=== PATIENT | male | born 1935 | race Caucasian/White ===

== ENCOUNTER 2016-10-07 19:41 | Inpatient (IN) | payer OTHER ==
[~2016-10-07] VITALS: Ht 172.7 cm; Wt 54.6 kg
[2016-10-07] MEDS ORDERED: CEFEPIME 2GM/50 ML (PMX) 50 ML IVPB STA (20:43)
[2016-10-07] MEDS ORDERED: SODIUM CHLORIDE 0.9% 1L BAG IV* STA (20:43)
[2016-10-07 21:00] VITALS: TEMP 98.5
[2016-10-07] MEDS ORDERED: VANCOMYCIN 1 GM (PMX) 250 ML IVPB ONE (21:00)
[2016-10-07] MEDS ORDERED: UBID10CA5 PO (21:14)
[2016-10-07] MEDS ORDERED: SIMV40TA2 PO (21:15)
[2016-10-07] MEDS ORDERED: NEO/5DRO22 BOTH EYES (21:17)
[2016-10-07] MEDS ORDERED: SIN25100 PO (21:18)
[2016-10-07] MEDS ORDERED: TAMS-14 PO (21:19)
[2016-10-07] MEDS ORDERED: FINA5TAB4 PO (21:19)
[2016-10-07] MEDS ORDERED: ASPI-664 PO (21:20)
[2016-10-07] MEDS ORDERED: FURO-110 PO (21:20)
[2016-10-07] MEDS ORDERED: SPIR25TA PO (21:21)
[2016-10-07 21:23] LABS: INR 1.27; PARTIAL THROMBOPLASTIN TIME 34.5 Sec (25.0-35.0); PT RATIO 1.3
[2016-10-07 21:26] LABS: POTASSIUM 4.3 mmol/L (3.5-5.1)
[2016-10-07 21:28] LABS: ALBUMIN/GLOBULIN RATIO 1.25; CREATININE 1.1 mg/dl (0.61-1.24); HEMATOCRIT 36.7 % (42.0-52.0); HEMOGLOBIN 12.4 g/dl (14.0-18.0); MEAN CORPUSCULAR HGB CONC 33.7 g/dl (32.0-37.0); MEAN CORPUSCULAR VOLUME 92.1 fl (82.0-101.0); MEAN PLATELET VOLUME 8.4 fl (7.4-10.4); PLATELET COUNT 128 10^3/UL (140-440); RED BLOOD COUNT 3.99 10^6/ul (4.70-6.10); RED CELL DISTRIBUTION WIDTH 14.9 % (11.5-14.5); TOTAL PROTEIN 7.2 g/dl (6.1-8.1); UNCORRECTED WBC 16.3 10^3/ul (4.8-10.8); WHITE BLOOD COUNT 16.3 10^3/ul (4.8-10.8)
[2016-10-07 21:29] LABS: CALCIUM 9.7 mg/dl (8.4-10.2)
--- NOTE | 2016-10-07 21:29 | RADRPT ---
PROCEDURE: XR Chest. CLINICAL INDICATION: Chest pain TECHNIQUE: Single frontal view of the chest was obtained. COMPARISON: None FINDINGS: The heart is within normal limits. The thoracic aorta is calcified. The lungs are clear. There is marked gaseous distension in the left upper quadrant with elevation of the left diaphragm. A small amount of free intraperitoneal air cannot be excluded. There is no pleural effusion or pneumothorax. RPTAT: AA IMPRESSION: Marked gaseous distension in the left upper quadrant with elevation of the left diaphragm. Free intraperitoneal air is also not excluded. Further evaluation with a CT abdomen is recommended. Calcified aorta consistent with atherosclerotic disease. A call report was made and the findings discussed with Higinio Turner at 10/07/2016 9:26:15 PM. .Sarthak Rivas MD, Date Time Electronically viewed and signed by .Sarthak Rivas MD, MD on 10/07/2016 21:28 .S/
[2016-10-07 21:33] LABS: CONDITION 1; LH ANALYZER COMMENTS 1; SUSPECT 1
[2016-10-07 21:42] LABS: ADD UMIC YES; URINE BILIRUBIN (Dip) NEGATIVE (NEGATIVE); URINE BLOOD (Dip) 1+ (NEGATIVE); URINE COLOR YELLOW (YELLOW); URINE GLUCOSE (Dip) NEGATIVE (NEGATIVE); URINE KETONES (Dip) TRACE (NEGATIVE); URINE LEUKOCYTE ESTERASE (Dip) NEGATIVE (NEGATIVE); URINE NITRITE (Dip) NEGATIVE (NEGATIVE); URINE TOTAL PROTEIN (Dip) NEGATIVE (NEGATIVE); URINE UROBILINOGEN (Dip) 0.2 E.U./dL (0.1-1.0)
[2016-10-07 21:46] LABS: TROPONIN-I 0.206 ng/ml (0.00-0.12)
[2016-10-07 21:54] LABS: BACTERIA,URINE RARE; SQUAMOUS EPITHELIAL CELL,UR RARE
[2016-10-07 22:01] LABS: LYMPHOCYTES # 0.3 10^3/ul (0.8-2.9); MONOCYTE # 0.5 10^3/ul (0.3-0.9); NEUTROPHIL # 13.7 10^3/ul (1.6-7.5)
[2016-10-07 22:02] LABS: PLATELET ESTIMATE PLT APPEAR DECREASED
--- NOTE | 2016-10-07 22:16 | RADRPT ---
PROCEDURE: CT Abdomen and Pelvis without contrast. CLINICAL INDICATION: Abdominal pain. TECHNIQUE: A CT scan of the abdomen and pelvis was performed without intravenous contrast. Faith l and sagittal reformatted images were generated. Images were reviewed on a high-resolution PACS wor kstation. CTDIvol: 9.50 mGy. DLP: 487.49 mGy-cm. COMPARISON: None. FINDINGS: There is mild bibasilar atelectasis and/or scarring. Evaluation of the abdominal and pelvic viscera is limited by the lack of oral and intravenous contra st. A paucity of peritoneal fat further limits evaluation for intra-abdominal inflammation and reinaldo s. The liver is unremarkable. The gallbladder is contracted. The common bile duct is not dilated. The s pleen is not enlarged. No pancreatic lesion is identified and there is no pancreatic ductal dilatati on. The adrenal glands are unremarkable. The kidneys are normal in size. There is no perinephric fat stranding. No hydronephrosis is seen. No urinary stone is identified. The small and large bowel are normal in caliber. There is no bowel wall thickening. There is a large volume of retained gas and stool within the colon, from the cecum to the mid sigmoid colon. The mi d sigmoid colon is focally narrowed, possibly due to external compression. No colonic mass is seen in this region. The appendix is not identified. Beam-hardening artifact from a right hip arthroplasty limits evaluation of the lower pelvic structur es. The urinary bladder is grossly unremarkable. The prostate gland is enlarged. No lymphadenopathy is identified. There is no ascites. No pneumoperitoneum is seen. There are modera te arterial calcifications. The inferomedial right acetabular wall is expanded, with anteromedial acetabular cortical thinning, nonspecific. There are moderate degenerative changes along the spine. IMPRESSION: 1. Limited noncontrast examination. A paucity of peritoneal fat further limits evaluation for intr a-abdominal inflammation and masses. 2. Large volume of retained gas and stool within the colon, from the cecum to the mid sigmoid colon . The mid sigmoid colon is focally narrowed, possibly due to external compression. No colonic mass is identified in this region. This could be further evaluated with colonoscopy or barium enema, as clinically warranted. 3. The appendix is not identified. 4. No obstructive uropathy or urinary stone. 5. Enlarged prostate gland. Correlation with PSA level is recommended. 6. Moderate atherosclerotic arterial calcifications. 7. Right hip arthroplasty. 8. Expansion of the inferomedial right acetabular wall, with anteromedial acetabular cortical thinn ing, nonspecific. Evaluation is region is limited by beam-hardening artifact in the adjacent arthrop lasty hardware. If clinically warranted, this could be further evaluated with contrast enhanced MRI , although artifact from the adjacent hardware may also limit evaluation of this region. RPTAT: HTAR .Jimmy Ragland MD, MD Date Time Electronically viewed and signed by .Jimmy Ragland MD, on 10/07/2016 22:16 .R/
[2016-10-07] MEDS ORDERED: ASPIRIN 81 MG TAB PO ONE (22:30)
--- NOTE | 2016-10-07 22:34 | ERA ---
ER Documentation Chief Complaint Date/Time DATE: 10/07/16 TIME: 22:31 Chief Complaint Hypotensive at MD orders, fever , chills, constipated X 4 days. HPI Patient is a 81-year-old male with Parkinson's disease and hypertension who presents with abdominal distention. He has had no bowel movement for the past 4 days. He went to his primary doctor today and the blood pressure was 72/42. He had dark urine and the doctor thought he might be dehydrated. He had fever and chills yesterday and there was concern for possible pneumonia although he denies any cough. Upon review of old medical records this is the patient's first visit to the ER. He did try a suppository yesterday. ROS All systems reviewed and are negative except as per history of present illness. Medications Home Meds Reported Medications Spironolactone* (Aldactone*) 25 Mg Tablet, 25 MG PO DAILY, #30 TAB 10/07/16 Furosemide* (Lasix*) 20 Mg Tablet, 20 MG PO DAILY, TAB 10/07/16 Aspirin* (Aspirin* EC) 81 Mg Tablet.dr, 81 MG PO DAILY, TAB 10/07/16 Tamsulosin Hcl* (Flomax*) 0.4 Mg Cap.er.24h, 0.4 MG PO DAILY, CAP 10/07/16 Finasteride* (Finasteride*) 5 Mg Tablet, 5 MG PO DAILY, TAB 10/07/16 Carbidopa-Levodopa* (Sinemet*) 25-100 Mg Tab, 1.5 TAB PO QID, TAB 10/07/16 Neomycin/Polymyxin/Dexameth* (Maxitrol*) 5 Ml Drops, 1 DROP BOTH EYES Q4H, EA 10/07/16 Simvastatin* (Zocor*) 40 Mg Tablet, 40 MG PO QHS, #30 TAB 10/07/16 Ubidecarenone* (Co Q-10*) 10 Mg Capsule, 10 MG PO DAILY, CAP 10/07/16 Allergies Allergies: Coded Allergies: No Known Allergy (Unverified , 10/07/16) PMhx/Soc Positive for hypertension and Parkinson's Hx Alcohol Use: No Hx Substance Use: No Hx Tobacco Use: No Smoking Status: Unknown if ever smoked FmHx Family History: No diabetes Physical Exam Vitals Vital Signs Date Time Temp Pulse Resp B/P Pulse Ox O2 Delivery O2 Flow Rate FiO2 10/07/16 21:00 98.5 60 18 107/54 100 Room Air 10/07/16 19:47 98.2 68 18 122/57 100 Physical Exam Const: Moderate distress Head: Atraumatic Eyes: Normal Conjunctiva ENT: Normal External Ears, Nose and Mouth. Neck: Full range of motion..~ No meningismus. Resp: Clear to auscultation bilaterally Cardio: Regular rate and rhythm, no murmurs Abd: Distended abdomen with upper abdominal pain with palpation Skin: Pale Back: No midline or flank tenderness Ext: No cyanosis, or edema Neur: Awake and alert Psych: Normal Mood and Affect Result Diagram: 10/07/16204910/07/162049 Results 24 hrs Laboratory Tests Test 10/07/16 20:50 10/07/16 21:20 Activated Partial Thromboplast Time 34.5Sec Alanine Aminotransferase (ALT/SGPT) 31IU/L Albumin 4.0g/dl Albumin/Globulin Ratio 1.25 Alkaline Phosphatase 51IU/L Anion Gap 15 Aspartate Amino Transf (AST/SGOT) 33IU/L Band Neutrophils % 11.0% Blood Morphology Comment Blood Urea Nitrogen 39mg/dl Calcium Level 9.7mg/dl Carbon Dioxide Level 31mmol/L Chloride Level 98mmol/L Creatinine 1.10mg/dl Direct Bilirubin 0.00mg/dl Globulin 3.20g/dl Glucose Level 106mg/dl Hematocrit 36.7% Hemoglobin 12.4g/dl INR International Normalized Ratio 1.27 Indirect Bilirubin 1.0mg/dl Lactic Acid Level 1.0mmol/L Lymphocytes # 0.310^3/ul Lymphocytes % 2.0% Mean Corpuscular Hemoglobin 31.0pg Mean Corpuscular Hemoglobin Concent 33.7g/dl Mean Corpuscular Volume 92.1fl Mean Platelet Volume 8.4fl Monocytes # 0.510^3/ul Monocytes % 3.0% Neutrophils # 13.710^3/ul Neutrophils % 84.0% Platelet Count 57354^3/UL Platelet Estimate PLT APPEAR DECREASED Potassium Level 4.3mmol/L Prothrombin Time 16.0Sec Prothrombin Time Ratio 1.3 Red Blood Count 3.9910^6/ul Red Cell Distribution Width 14.9% Sodium Level 140mmol/L Total Bilirubin 1.0mg/dl Total Protein 7.2g/dl Troponin I 0.206ng/ml White Blood Count 16.310^3/ul Urine Bacteria RARE Urine Bilirubin NEGATIVE Urine Clarity CLEAR Urine Color YELLOW Urine Glucose NEGATIVE% Urine Hemoglobin 1+ Urine Ketones TRACE Urine Leukocyte Esterase NEGATIVE Urine Microscopic RBC 10-25/HPF Urine Microscopic WBC NONE SEEN/HPF Urine Nitrite NEGATIVE Urine Specific Lejunior 1.020 Urine Squamous Epithelial Cells RARE Urine Total Protein NEGATIVE Urine Urobilinogen 0.2 E.U./dL Urine pH 6.0 Current Medications Medications (Trade) Dose Ordered Sig/Darcie Route PRN Reason Start Time Stop Time Status Last Admin Dose Admin Sodium Chloride 1660 ml 1,660 ml BOLUS OVER 2 HOURS STAT IV* 10/07/16 20:43 10/07/16 20:44 DC 10/07/16 21:09 Cefepime HCl 50 ml @ 100 mls/hr ONCE STAT IVPB 10/07/16 20:43 10/07/16 21:12 DC 10/07/16 21:14 Vancomycin HCl (Vancocin) 250 ml @ 125 mls/hr ONCE ONCE IVPB 10/07/16 21:00 10/07/16 22:59 10/07/16 22:05 Aspirin (Aspirin) 162 mg ONCE ONCE PO 10/07/16 22:30 10/07/16 22:31 Procedures/MDM EKG read by me: Rate/Rhythm: Bifascicular block at a rate of 59 Intervals: Normal Impression: Bifascicular block without evidence of ischemia Chest x-ray shows distention of the colon per radiology. No pneumonia. PROCEDURE: CT Abdomen and Pelvis without contrast. CLINICAL INDICATION: Abdominal pain. TECHNIQUE: A CT scan of the abdomen and pelvis was performed without intravenous contrast. Coronal and sagittal reformatted images were generated. Images were reviewed on a high-resolution PACS workstation. CTDIvol: 9.50 mGy. DLP: 487.49 mGy-cm. COMPARISON: None. FINDINGS: There is mild bibasilar atelectasis and/or scarring. Evaluation of the abdominal and pelvic viscera is limited by the lack of oral and intravenous contrast. A paucity of peritoneal fat further limits evaluation for intra-abdominal inflammation and masses. The liver is unremarkable. The gallbladder is contracted. The common bile duct is not dilated. The spleen is not enlarged. No pancreatic lesion is identified and there is no pancreatic ductal dilatation. The adrenal glands are unremarkable. The kidneys are normal in size. There is no perinephric fat stranding. No hydronephrosis is seen. No urinary stone is identified. The small and large bowel are normal in caliber. There is no bowel wall thickening. There is a large volume of retained gas and stool within the colon, from the cecum to the mid sigmoid colon. The mid sigmoid colon is focally narrowed, possibly due to external compression. No colonic mass is seen in this region. The appendix is not identified. Beam-hardening artifact from a right hip arthroplasty limits evaluation of the lower pelvic structures. The urinary bladder is grossly unremarkable. The prostate gland is enlarged. No lymphadenopathy is identified. There is no ascites. No pneumoperitoneum is seen. There are moderate arterial calcifications. The inferomedial right acetabular wall is expanded, with anteromedial acetabular cortical thinning, nonspecific. There are moderate degenerative changes along the spine. IMPRESSION: 1. Limited noncontrast examination. A paucity of peritoneal fat further limits evaluation for intra-abdominal inflammation and masses. 2. Large volume of retained gas and stool within the colon, from the cecum to the mid sigmoid colon. The mid sigmoid colon is focally narrowed, possibly due to external compression. No colonic mass is identified in this region. This could be further evaluated with colonoscopy or barium enema, as clinically warranted. 3. The appendix is not identified. 4. No obstructive uropathy or urinary stone. 5. Enlarged prostate gland. Correlation with PSA level is recommended. 6. Moderate atherosclerotic arterial calcifications. 7. Right hip arthroplasty. 8. Expansion of the inferomedial right acetabular wall, with anteromedial acetabular cortical thinning, nonspecific. Evaluation is region is limited by beam-hardening artifact in the adjacent arthroplasty hardware. If clinically warranted, this could be further evaluated with contrast enhanced MRI, although artifact from the adjacent hardware may also limit evaluation of this region. RPTAT: HTAR .Jimmy Ragland MD, MD Date Time Electronically viewed and signed by .Jimmy Ragland MD, on 10/07/2016 22:16 Patient is a 81-year-old male who presents with abdominal distention as well as positive troponin. The patient has an end STEMI. The patient will need admission to the hospital. He has significant abdominal distention from constipation as well. The patient will be admitted to the [facility] and I am awaiting a call back at this time. The patient will need admission to a telemetry bed. The patient was given aspirin for the positive troponin. EKG does not show any signs of ST elevations. The patient was given fluids empirically as well as antibiotics initially for potential sepsis but at this time I do not see any obvious sign of infection. Critical Care: Time: 35 minutes excluding all billable procedures. Treatments/Evaluations: Close monitoring and treatment of unstable vital signs, cardiorespiratory, and neurologic status, while maintaining tight balance of fluid, respiratory, and cardiac interventions. Departure Diagnosis: Primary Impression: NSTEMI (non-ST elevated myocardial infarction) Additional Impressions: Abdominal distension Constipation Qualified Code: K59.00 - Constipation, unspecified constipation type Condition: Serious FILIPE AGUILLON MD Oct 07, 2016 22:34
[2016-10-07] MEDS ORDERED: ONDANSETRON 4 MG INJ IV PRN (23:00)
[2016-10-07] MEDS ORDERED: ACETAMINOPHEN 325 MG TAB PO PRN (23:00)
[2016-10-08] VITALS (13 sets, daily range): BP systolic 116–138; BP diastolic 56–65; PULSE 50–60; RESP 19–20; Ht 172.7 cm; Wt 54.6 kg
--- NOTE | 2016-10-08 01:22 | QN ---
Documentation Comment H&P dict a/p 1. gi: abdo distention and fos on ct, unclear etiology, njot on meds which are likely to cause this. will attempt aggressive laxatives. Consider possible mass lesion causing near total obstruction 2. cards: elevated trop on doubtful clinical significance, trend (b) known CAD with prior CABG 3. parkinsons, cont sinnemet proph: FER Perez MD Oct 08, 2016 01:22
[2016-10-08] MEDS ORDERED: ONDANSETRON 4 MG INJ IV PRN (01:30)
[2016-10-08] MEDS ORDERED: CARBIDOPA/LEVODOPA (25/100) TAB PO SCH (02:00)
[2016-10-08] MEDS: SENNA/DOCUSATE NA (8.6MG/50MG) TAB PO SCH ×3 (02:23→22:26)
[2016-10-08] MEDS: POLYETHYLENE GLYCOL 17 GM PACKET PO SCH ×3 (02:24→22:25)
[2016-10-08] MEDS: NEOMYC/POLYMYX/DEXAMETH OPH 5 ML BOTH EYES SCH ×6 (02:25→22:25)
[2016-10-08] MEDS: SOD CHLORIDE 0.9% 1,000 ML IV SCH ×3 (02:25→22:38)
[2016-10-08] MEDS: ACETAMINOPHEN 325 MG TAB PO PRN ×2 (03:00→22:36)
--- NOTE | 2016-10-08 03:13 | HP ---
DATE OF ADMISSION: 10/07/2016 CHIEF COMPLAINT: Abdominal distention. HISTORY OF PRESENT ILLNESS: Mr. Melo presents to the emergency room at [facility] with ab dominal distention which has been worsening over the last 4 days or so. He states that over that sa me period of time he has not been able to have a bowel movement. He states that there may also be d ifficult to no passage of flatus during that same time. He denies any associated pain, denies any n ausea or vomiting, does not say that this has ever happened before. He he does feel like he is losi ng weight, though he is unable to quantify how much weight he may have lost. PAST MEDICAL HISTORY: Significant for 1. Coronary artery disease status post coronary artery bypass grafting. 2. Parkinson disease. 3. Benign prostatic hypertrophy. MEDICATIONS: As an outpatient include 1. Flomax 0.4 mg daily. 2. Zocor 40 mg daily. 3. Aldactone 25 mg daily. 4. Aspirin 81 mg daily. 5. Sinemet 25/100, 1.5 tablets 4 times a day. 6. Lasix 20 mg daily. 7. Maxitrol eyedrops. 8. Proscar 5 mg daily. 9. Coenzyme Q. ALLERGIES: NO KNOWN DRUG ALLERGIES. SOCIAL HISTORY: The patient lives at home in [place] with his . He has the assistance of 24 -hour caregiver who helps him with ambulation, dressing, bathing, cooking, and shopping. He uses a walker. Denies tobacco, alcohol, or illicit drug use. FAMILY HISTORY: Noncontributory. REVIEW OF SYSTEMS: Five systems reviewed and found not to be revealing. PHYSICAL EXAMINATION: VITAL SIGNS: Blood pressure is 137/62, pulse rate is 60, respirations 20, temperature is 98. GENERAL: Pleasant elderly man in no acute distress. Alert and oriented x3. HEENT: Normocephalic, atraumatic without evident scleral icterus, perioral cyanosis. Mucous membra kayla dry. NECK: Soft and supple without masses. No evidence of jugular venous distention or carotid bruits. CHEST: Clear to auscultation and percussion bilaterally anteriorly. The patient is unable to sit u p for posterior exam. HEART: Regular rate and rhythm, S1, S2. No added sounds. ABDOMEN: Soft, distended, tympanitic. No palpable hepatosplenomegaly. RECTAL: Exam is performed and does not reveal any palpable masses. Prostate is of normal size. EXTREMITIES: Without clubbing, cyanosis, or edema. SKIN: Without rashes. NEUROLOGIC: Grossly intact. LABORATORY STUDIES: Reveal hemoglobin of 12.4 g/dL, white count of 16,300, platelets of 128,000. S odium 140, potassium 4.3, chloride 98, bicarbonate 31, BUN 39, creatinine 1.1, glucose 106. Liver f unction tests are unremarkable. Troponin is 0.206. Lactic acid is normal. UA is negative for sign s of infection. Chest x-ray does not reveal any acute intrathoracic disease, but there is a marked gaseous distention in the left upper quadrant with elevation of left hemidiaphragm. CT scan of the abdomen and pelvis was performed without contrast which reveals a large volume of retained gas and s tool within the colon. There is a midsigmoid focal narrowing which the radiologist speculates is du e to external compression. No colon mass is identified. ASSESSMENT AND PLAN: 1. Gastrointestinal: The patient with increasing abdominal distention and associated inability to pass stool. No medications are identified which might cause this syndrome. Need to rule out obstru cting mass lesion. We will plan to obtain a repeat CT scan with IV and p.o. contrast and GI evaluat ion. We will begin aggressive bowel regimen with laxatives and enemas in attempt to resolve this is kevin. 2. Cardiac: The patient with known coronary artery disease and coronary artery bypass grafting. C ontinue secondary prevention. 3. The patient with elevation of troponin of unclear clinical significance. There is no EKG or phil st pain to correlate with this. We will plan to trend this further at this time. 4. Parkinson. 5. Prophylaxis with Lovenox. Dictated By: FER FERRELL MD RER/NTS Conf#: [id number] DID#: [id number]
[2016-10-08] MEDS: morphine 2 MG INJ IV PRN ×2 (07:11→11:21)
[2016-10-08 07:46] LABS: BASOPHILS % 0.1 % (0.0-2.0); CONDITION 1; EOSINOPHILS # 0.1 10^3/ul (0.0-0.5); EOSINOPHILS % 1.2 % (0.0-7.0); HEMATOCRIT 32.1 % (42.0-52.0); HEMOGLOBIN 10.7 g/dl (14.0-18.0); LH ANALYZER COMMENTS 1; LYMPHOCYTES # 0.4 10^3/ul (0.8-2.9); LYMPHOCYTES % 3.1 % (15.0-51.0); MEAN CORPUSCULAR HEMOGLOBIN 30.9 pg (29.0-33.0); MEAN CORPUSCULAR HGB CONC 33.3 g/dl (32.0-37.0); MEAN CORPUSCULAR VOLUME 92.8 fl (82.0-101.0); MONOCYTE # 0.4 10^3/ul (0.3-0.9); MONOCYTES % 3.6 % (0.0-11.0); NEUTROPHIL # 11.1 10^3/ul (1.6-7.5); PLATELET COUNT 102 10^3/UL (140-440); RED BLOOD COUNT 3.46 10^6/ul (4.70-6.10); RED CELL DISTRIBUTION WIDTH 15.3 % (11.5-14.5)
[2016-10-08 07:55] LABS: POTASSIUM 3.8 mmol/L (3.5-5.1)
[2016-10-08 07:58] LABS: CALCIUM 8.7 mg/dl (8.4-10.2); CREATININE 0.75 mg/dl (0.61-1.24)
[2016-10-08 08:09] LABS: TROPONIN-I 0.286 ng/ml (0.00-0.12)
[2016-10-08] MEDS: ASPIRIN (EC) 81 MG TAB PO SCH (08:23)
[2016-10-08] MEDS: CARBIDOPA/LEVODOPA (25/100) TAB PO SCH ×4 (08:24→22:26)
[2016-10-08] MEDS: FINASTERIDE 5 MG TAB PO SCH (08:36)
[2016-10-08] MEDS ORDERED: ENOXAPARIN 30 MG/0.3 ML SYG SC SCH (09:00)
[2016-10-08] MEDS ORDERED: BARIUM SULF 2.1% 450 ML BTL (BERRY SMOOTHIE) PO ONE (10:55)
[2016-10-08 13:38] LABS: CK-MB 5.37 ng/ml (0.0-2.4)
--- NOTE | 2016-10-08 13:47 | RADRPT ---
Echocardiogram Report Patient Name: GIOVANNA THOMPSON Gender: Male Date: 1935 Study Date: 08-Oct-2016 [employer] Helper: Gagan Freedman [facility] Location: 5566 Ref. Physician: FER FERRELL Quality: Good Procedures: Transthoracic echocardiogram with complete 2D, M-Mode, and doppler examination. Indications: NSTEMI. 2D/M Mode Doppler Measurement Value Normal Ranges Measurement Value Normal Ranges LVIDd 2D 3.4 3.5 - 5.6 cm AV Peak Brando 1.2 m/sec LVIDs 2D 2.6 2.1 - 4.1 cm AV Peak PG 5.7 mmHg LVPWd 2D 1.1 0.6 - 1.1 cm LVOT Peak Brando 1.2 m/sec IVSd 2D 1.0 0.6 - 1.1 cm LVOT Peak PG 5.5 mmHg AoR Diam 2D 2.3 2.0 - 3.7 cm MV E Peak Brando 1.1 m/sec EDV 2D 48.9 cm3 MV A Peak Brando 0.7 m/sec ESV 2D 18.1 cm3 MV E/A 1.5 LA Dimen 2D 5.5 2.3 - 4.0 cm MV Decel Time 234 msec MV Decel [place] 5 MV E/A 1.5 TR Peak Brando 2.4 m/sec TR Peak PG 22.4 mmHg RVSP 30.0 mmHg Findings Left Ventricle: Normal left ventricular systolic function. Normal left ventricular cavity size. Normal left ventricular wall thickness. Ejection fraction is visually estimated at 65 %. Tissue Doppler/Mitral Doppler indices are consistent with pseudonormalization with mildly elevated left atrial pressure (Stage II diastolic dysfunction). Right Ventricle: Normal right ventricular size. Normal right ventricular systolic function. Left Atrium: There is moderate enlargement of left atrium. Right Atrium: There is moderate enlargement of right atrium. Mitral Valve: Mitral valve leaflets appear mildly thickened. Mild mitral annular calcification. Mild mitral valve regurgitation. Aortic Valve: No hemodynamically significant aortic stenosis by doppler. Aortic cusps appear mildly calcified. Mild aortic valve regurgitation. Tricuspid Valve: Normal appearance of the tricuspid valve. Estimated peak PA systolic pressure 30 mmHg. There is mild tricuspid regurgitation. Pericardium: Normal pericardium with no significant pericardial effusion. Aorta: Normal aortic root. IVC: The IVC is not well visualized. Conclusions 1.Normal left ventricular systolic function. Normal left ventricular cavity size. Normal left ventricular wall thickness. Ejection fraction is visually estimated at 65 %. Tissue Doppler/Mitral Doppler indices are consistent with pseudonormalization with mildly elevated left atrial pressure (Stage II diastolic dysfunction). 2.Normal right ventricular size. Normal right ventricular systolic function. 3.There is moderate enlargement of left atrium. 4.There is moderate enlargement of right atrium. 5.Mild mitral valve regurgitation. 6.No hemodynamically significant aortic stenosis by doppler. Mild aortic valve regurgitation. 7.Estimated peak PA systolic pressure 30 mmHg. There is mild tricuspid regurgitation. 8.Normal pericardium with no significant pericardial effusion. Electronically Signed By: Billy Becerra 08-Oct-2016 13:46:26 -0800 Patient Name: GIOVANNA THOMPSON Study Date: 08-Oct-[id number]
[2016-10-08 13:51] LABS: TROPONIN-I 0.371 ng/ml (0.00-0.12)
[2016-10-08] MEDS ORDERED: SOD CHLORIDE 0.9% 100 ML ONE (13:59)
[2016-10-08] MEDS ORDERED: IOHEXOL 300MG/ML 150 ML BTL ONE (13:59)
--- NOTE | 2016-10-08 13:59 | RADRPT ---
Vent Rate: 57 bpm RR Interval: 0 msec PA Interval: 262 msec QRS Duration: 140 msec QT Interval: 452 msec QTC Interval: 439 msec P-R-T [place]: 39 - -71 - 10 degrees Sinus bradycardia with 1st degree AV block with premature atrial complexes Right bundle branch block Left anterior fascicular block Bifascicular block Possible Lateral infarct , age undetermined Inferior infarct , age undetermined Abnormal ECG Electronically Signed By: Billy Becerra [id number]
--- NOTE | 2016-10-08 14:45 | RADRPT ---
PROCEDURE: CT Abdomen and Pelvis with contrast. CLINICAL INDICATION: Abdomen and pelvis pain. History of sigmoid colon mass. TECHNIQUE: CT scan of the abdomen and pelvis without and with contrast was performed. The patient was scanned both before and following the uncomplicated intravenous administration of 90 cc of Omnip [id number]. Coronal and sagittal reformatted images were obtained from the axial source images. Image s were reviewed on a high-resolution PACS workstation. Total exam DLP is 1068.55 mGy-cm. CTDIvol i s 8.61 mGy. One or more of the following dose reduction techniques were used: Automated exposure co ntrol, adjustment of the mA and/or kV according to patient size, use of iterative reconstruction nava hnique. COMPARISON: 10/07/2016. FINDINGS: There are new small bilateral pleural effusions. Mild atelectasis is present at the lung bases post eriorly. The lung bases are otherwise normal. The heart size is normal. There has been previous m edian sternotomy. There is extensive coronary artery calcification. There is no pericardial effusi on. The liver is normal in size and attenuation. There is no focal hepatic lesion. The gallbladder and bile ducts are normal. The spleen is normal in size. There is no focal splenic lesion. Both adrenals are normal with no enlargement or mass. The pancreas is unremarkable with no mass or evidence of pancreatitis. Both kidneys demonstrate normal contrast enhancement. There is no renal mass, calculus, or hydrone phrosis. The abdominal aorta is not dilated. There is calcification in the aorta consistent with atheroscler osis. There is no retroperitoneal lymphadenopathy or mass. There is no pelvic lymphadenopathy or mass. The urinary bladder is distended but otherwise normal the ureters are unremarkable. There is extensive distension of the colon with very large amount of stool and gas throughout. This may indicate distal obstruction. No definite obstructing lesion is visualized. The small bowel is grossly normal. There is no free fluid or free gas. There are degenerative changes of the spine and lumbar scoliosis convex right. There is a right hip total arthroplasty. IMPRESSION: 1. New small bilateral pleural effusions. 2. Mild atelectasis at the lung bases posteriorly. 3. Previous median sternotomy. 4. Coronary artery calcification. 5. Atherosclerotic calcification in the aorta. 6. Distended urinary bladder. 7. Extensive distension of the colon with large amount of stool and gas throughout. This may indic ate distal obstruction. No obstructing lesion is visualized. 8. Degenerative changes of the spine. 9. Right hip total arthroplasty. RPTAT: QQ .Barrera Wood MD, Date Time Electronically viewed and signed by .Barrera Wood MD, MD on 10/08/2016 14:44 .R/
--- NOTE | 2016-10-08 16:06 | CONS ---
Date/Time of Note Date/Time of Note DATE: 10/08/16 TIME: 15:50 Assessment/Plan Assessment/Plan Additional Assessment/Plan Severe constipation with possible obstruction Mildly elevated troponin Preserved ejection fraction CAD with history of CABG Hypertension Preoperative cardiac risk stratification -Patient with incidental finding of mildly elevated troponin. Patient denies any chest pain or shortness of breath. Echocardiogram with preserved ejection fraction, no significant ischemic ST abnormalities on ECG. Patient awaiting GI evaluation and will likely need colonoscopy. Given his risk factors elevated troponin, patient is at least at an intermediate risk for any untoward cardiac events for colonoscopy. Given the need of procedure for treatment, the benefits likely outweigh the risks. Would continue aspirin and statin therapy if no contraindication. No beta joseph at the current time given bradycardia. Consultation Date/Type/Reason Admit Date/Time Oct 07, 2016 at 22:48 Type of Consultation: cv Reason for Consultation Elevated troponin Hx of Present Illness This is an 81-year-old female with past medical history of coronary artery disease with history of CABG, hypertension, Parkinson's who presents with worsening constipation and abdominal distention over the past 2 weeks. Patient developed abdominal pain over the past couple days as well. He denies shortness of breath, dizziness, chest pain or pressure or palpitations. Patient found to have elevated troponins on blood work and for this reason cardio to consultation was requested. He does of a history of coronary artery disease and had CABG many years ago with a redo approximately 15 years ago. He does follow with his inspection clerk Dr. Goetz on a regular basis. He denies any fevers or chills, dizziness. 12 point review of systems was performed with all pertinent positives and negatives mentioned above and all else is negative Past Medical History Medical History: coronary artery disease, high cholesterol, hypertension Past Surgical History Past Surgical Hx: coronary bypass surgery (x2) Family History Significant Family History: no pertinent family hx, other Social History Alcohol Use: none Smoking Status: Never smoker Exam/Review of Systems Vital Signs Vitals Vital Signs Date Time Temp Pulse Resp B/P Pulse Ox O2 Delivery O2 Flow Rate FiO2 10/08/16 15:46 97.4 54 20 122/58 100 10/07/16 23:00 Room Air Intake and Output 10/07/16 10/07/16 10/08/16 15:00 23:00 07:00 Intake Total 300 ml Balance 300 ml Exam No apparent distress Constitutional: alert, frail, oriented Head: normocephalic Neck: supple Respiratory: other (course breath sounds bilaterally, no wheezing) Cardiovascular: other (S1 and S2 heard), regular rate and rhythm Gastrointestinal: bowel sounds, distended, tender (diffusely tender with palpation) Extremities: other (no edema) Results Result Diagram: 10/08/16 0625 10/08/16 0625 Results 24 hrs Laboratory Tests Test 10/07/16 20:50 10/07/16 21:20 10/07/16 22:44 10/08/16 00:40 Activated Partial Thromboplast Time 34.5 Alanine Aminotransferase (ALT/SGPT) 31 Albumin 4.0 Albumin/Globulin Ratio 1.25 Alkaline Phosphatase 51 Anion Gap 15 Aspartate Amino Transf (AST/SGOT) 33 Band Neutrophils % 11.0 H Blood Morphology Comment Blood Urea Nitrogen 39 H Calcium Level 9.7 Carbon Dioxide Level 31 Chloride Level 98 Creatinine 1.10 Direct Bilirubin 0.00 Globulin 3.20 Glucose Level 106 Hematocrit 36.7 L Hemoglobin 12.4 L INR International Normalized Ratio 1.27 Indirect Bilirubin 1.0 Lactic Acid Level 1.0 2.2 1.9 Lymphocytes # 0.3 L Lymphocytes % 2.0 L Mean Corpuscular Hemoglobin 31.0 Mean Corpuscular Hemoglobin Concent 33.7 Mean Corpuscular Volume 92.1 Mean Platelet Volume 8.4 Monocytes # 0.5 Monocytes % 3.0 Neutrophils # 13.7 H Neutrophils % 84.0 H Platelet Count 128 L Platelet Estimate PLT APPEAR DECREASED Potassium Level 4.3 Prothrombin Time 16.0 H Prothrombin Time Ratio 1.3 Red Blood Count 3.99 L Red Cell Distribution Width 14.9 H Sodium Level 140 Total Bilirubin 1.0 Total Protein 7.2 Troponin I 0.206 *H White Blood Count 16.3 H Urine Bacteria RARE Urine Bilirubin NEGATIVE Urine Clarity CLEAR Urine Color YELLOW Urine Glucose NEGATIVE Urine Hemoglobin 1+ H Urine Ketones TRACE Urine Leukocyte Esterase NEGATIVE Urine Microscopic RBC 10-25 Urine Microscopic WBC NONE SEEN Urine Nitrite NEGATIVE Urine Specific [place] 1.020 Urine Squamous Epithelial Cells RARE Urine Total Protein NEGATIVE Urine Urobilinogen 0.2 E.U./dL Urine pH 6.0 Test 10/08/16 06:25 10/08/16 13:00 Anion Gap 14 Basophils # 0.0 Basophils % 0.1 Blood Morphology Comment Blood Urea Nitrogen 34 H Calcium Level 8.7 Carbon Dioxide Level 25 Chloride Level 106 Creatinine 0.75 Eosinophils # 0.1 Eosinophils % 1.2 Glucose Level 71 Hematocrit 32.1 L Hemoglobin 10.7 L Lymphocytes # 0.4 L Lymphocytes % 3.1 L Mean Corpuscular Hemoglobin 30.9 Mean Corpuscular Hemoglobin Concent 33.3 Mean Corpuscular Volume 92.8 Mean Platelet Volume 8.0 Monocytes # 0.4 Monocytes % 3.6 Neutrophils # 11.1 H Neutrophils % 92.0 H Nucleated Red Blood Cells # 0.0 Nucleated Red Blood Cells % 0.0 Platelet Count 102 #L Potassium Level 3.8 Red Blood Count 3.46 L Red Cell Distribution Width 15.3 H Sodium Level 141 Troponin I 0.286 *H 0.371 *H White Blood Count 12.0 #H Creatine Kinase 125 Creatine Kinase Index 4.3 Creatinine Kinase MB (Mass) 5.37 H Medications Medications Current Medications Aspirin (Halfprin) 81 mg DAILY PO Last administered on 10/08/16 08:23; Admin Dose 81 MG; Start 10/08/16 at 09:00 Carbidopa/Levodopa (Sinemet (25/ 100)) 1.5 tab QID PO Last administered on 10/08 12:23; Admin Dose 1.5 TAB; Start 10/08/16 at 09:00 Finasteride (Proscar) 5 mg DAILY PO ; Start 10/08/16 at 09:00 Neomycin/ Polymyxin/ Dexamethasone (Maxitrol Oph Susp) 1 drop Q4H BOTH EYES Last administered on 10/08/16 08:23; Admin Dose 1 DROP; Start 10/08/16 at 01:30 Tamsulosin HCl (Flomax) 0.4 mg QPM PO ; Start 10/08/16 at 21:00 Atorvastatin Calcium (Lipitor) 20 mg DAILY@21 PO ; Start 10/08/16 at 21:00 Polyethylene Glycol (Miralax) 17 gm BID PO Last administered on 10/08/16 08:23 ; Admin Dose 17 GM; Start 10/08/16 at 01:30 Senna/Docusate Sodium 2 tab 2 tab BID PO Last administered on 10/08/16 08:23; Admin Dose 2 TAB; Start 10/08/16 at 01:30 Sodium Chloride (NS) 1,000 ml @ 100 mls/hr Q10H IV Last administered on 07:11; Admin Dose 100 MLS/HR; Start 10/08/16 at 01:30 Enoxaparin Sodium (Lovenox) 30 mg DAILY SC Last administered on 10/08/16 08:30 ; Admin Dose 30 MG; Start 10/08/16 at 09:00 Acetaminophen (Tylenol Tab) 650 mg Q4H PRN PO PAIN AND OR ELEVATED TEMP Last administered on 10/08/16 03:00; Admin Dose 650 MG; Start 10/08/16 at 01:30 Ondansetron HCl (Zofran Inj) 4 mg Q4H PRN IV NAUSEA AND/OR VOMITING; Start at 01:30 Morphine Sulfate (morphine) 2 mg Q2H PRN IV PAIN Last administered on 11:21; Admin Dose 2 MG; Start 10/08/16 at 01:30 Procedures Procedures ECG done today demonstrates sinus rhythm with first-degree AV block, AR interval 262 ms, right bundle-branch block, inferior Q waves, no significant ischemic STT wave abnormalities Billy Becerra DO Oct 08, 2016 16:01
--- NOTE | 2016-10-08 16:48 | PN ---
Date/Time of Note Date/Time of Note DATE: 10/08/16 TIME: 16:09 Assessment/Plan VTE Prophylaxis VTE Prophylaxis Intervention: SCD's Lines/Catheters IV Catheter Type (from Nrsg): Peripheral IV Assessment/Plan Assessment/Plan 81 yo male: 1. Constipation with possible obstipation Repeat CT abdo/pelvis with IV/po contrast showing extensive distension of the colon with large amount of stool and gas throughout. This may indicate distal obstruction. No obstructing lesion is visualized. Continue aggressive bowel regimen with laxatives and enemas, Dr Chambers has consulted Dr Chicas. 2. Coronary artery disease and s/p previous coronary artery bypass grafting. Elevated troponins on this admission with no chest pain Continue current meds and appreciate Dr Becerra's recommendations 2D echo stable, EKG stable. 3. Parkinson Disease: continue Sinemet. 4. Lower ext weakness: progressive lately per patient, given also distended bladder and constipation, will plan for CT or MRI T/L spine in AM after some relief of constipation. Prophylaxis: DVT ppx with Lovenox and GI prophylaxis with PPI Disposition: bowel regimen and dc catheter, Dr Chicas will see in AM Subjective 24 Hr Interval Summary Free Text/Dictation Patient remains stable and still with abdominal distension and large amount of stool through colon on repeat CT and also distended bladder needing Dc catheter GI eval pending Appreciate eval from Dr Becerra Exam/Review of Systems Vital Signs Vitals Vital Signs Date Time Temp Pulse Resp B/P Pulse Ox O2 Delivery O2 Flow Rate FiO2 10/08/16 15:46 97.4 54 20 122/58 100 10/07/16 23:00 Room Air Intake and Output 10/07/16 10/07/16 10/08/16 15:00 23:00 07:00 Intake Total 300 ml Balance 300 ml Exam Constitutional: alert, frail, oriented, other (thin) Respiratory: clear to auscultation, normal air movement Cardiovascular: nl pulses, regular rate and rhythm Gastrointestinal: distended, non-tender, soft Musculoskeletal: nl extremities to inspection Extremities: normal pulses, other (no edema, clubbing or cyanosis ) Neurological: UI ENGINEER II-XII intact, nl mental status, nl speech, other ( generalised weakness ) Results Result Diagram: 10/08/1662410/08/16624 Results 24 hrs Laboratory Tests Test 10/07/16 20:50 10/07/16 21:20 10/07/16 22:44 10/08/16 00:40 Activated Partial Thromboplast Time 34.5 Alanine Aminotransferase (ALT/SGPT) 31 Albumin 4.0 Albumin/Globulin Ratio 1.25 Alkaline Phosphatase 51 Anion Gap 15 Aspartate Amino Transf (AST/SGOT) 33 Band Neutrophils % 11.0 H Blood Morphology Comment Blood Urea Nitrogen 39 H Calcium Level 9.7 Carbon Dioxide Level 31 Chloride Level 98 Creatinine 1.10 Direct Bilirubin 0.00 Globulin 3.20 Glucose Level 106 Hematocrit 36.7 L Hemoglobin 12.4 L INR International Normalized Ratio 1.27 Indirect Bilirubin 1.0 Lactic Acid Level 1.0 2.2 1.9 Lymphocytes # 0.3 L Lymphocytes % 2.0 L Mean Corpuscular Hemoglobin 31.0 Mean Corpuscular Hemoglobin Concent 33.7 Mean Corpuscular Volume 92.1 Mean Platelet Volume 8.4 Monocytes # 0.5 Monocytes % 3.0 Neutrophils # 13.7 H Neutrophils % 84.0 H Platelet Count 128 L Platelet Estimate PLT APPEAR DECREASED Potassium Level 4.3 Prothrombin Time 16.0 H Prothrombin Time Ratio 1.3 Red Blood Count 3.99 L Red Cell Distribution Width 14.9 H Sodium Level 140 Total Bilirubin 1.0 Total Protein 7.2 Troponin I 0.206 *H White Blood Count 16.3 H Urine Bacteria RARE Urine Bilirubin NEGATIVE Urine Clarity CLEAR Urine Color YELLOW Urine Glucose NEGATIVE Urine Hemoglobin 1+ H Urine Ketones TRACE Urine Leukocyte Esterase NEGATIVE Urine Microscopic RBC 10-25 Urine Microscopic WBC NONE SEEN Urine Nitrite NEGATIVE Urine Specific [place] 1.020 Urine Squamous Epithelial Cells RARE Urine Total Protein NEGATIVE Urine Urobilinogen 0.2 E.U./dL Urine pH 6.0 Test 10/08/16 06:25 10/08/16 13:00 Anion Gap 14 Basophils # 0.0 Basophils % 0.1 Blood Morphology Comment Blood Urea Nitrogen 34 H Calcium Level 8.7 Carbon Dioxide Level 25 Chloride Level 106 Creatinine 0.75 Eosinophils # 0.1 Eosinophils % 1.2 Glucose Level 71 Hematocrit 32.1 L Hemoglobin 10.7 L Lymphocytes # 0.4 L Lymphocytes % 3.1 L Mean Corpuscular Hemoglobin 30.9 Mean Corpuscular Hemoglobin Concent 33.3 Mean Corpuscular Volume 92.8 Mean Platelet Volume 8.0 Monocytes # 0.4 Monocytes % 3.6 Neutrophils # 11.1 H Neutrophils % 92.0 H Nucleated Red Blood Cells # 0.0 Nucleated Red Blood Cells % 0.0 Platelet Count 102 #L Potassium Level 3.8 Red Blood Count 3.46 L Red Cell Distribution Width 15.3 H Sodium Level 141 Troponin I 0.286 *H 0.371 *H White Blood Count 12.0 #H Creatine Kinase 125 Creatine Kinase Index 4.3 Creatinine Kinase MB (Mass) 5.37 H Medications Medications Current Medications Aspirin (Halfprin) 81 mg DAILY PO Last administered on 10/08/16 08:23; Admin Dose 81 MG; Start 10/08/16 at 09:00 Carbidopa/Levodopa (Sinemet (25/ 100)) 1.5 tab QID PO Last administered on 10/08 12:23; Admin Dose 1.5 TAB; Start 10/08/16 at 09:00 Finasteride (Proscar) 5 mg DAILY PO ; Start 10/08/16 at 09:00 Neomycin/ Polymyxin/ Dexamethasone (Maxitrol Oph Susp) 1 drop Q4H BOTH EYES Last administered on 10/08/16 08:23; Admin Dose 1 DROP; Start 10/08/16 at 01:30 Tamsulosin HCl (Flomax) 0.4 mg QPM PO ; Start 10/08/16 at 21:00 Atorvastatin Calcium (Lipitor) 20 mg DAILY@21 PO ; Start 10/08/16 at 21:00 Polyethylene Glycol (Miralax) 17 gm BID PO Last administered on 10/08/16 08:23 ; Admin Dose 17 GM; Start 10/08/16 at 01:30 Senna/Docusate Sodium 2 tab 2 tab BID PO Last administered on 10/08/16 08:23; Admin Dose 2 TAB; Start 10/08/16 at 01:30 Sodium Chloride (NS) 1,000 ml @ 100 mls/hr Q10H IV Last administered on 07:11; Admin Dose 100 MLS/HR; Start 10/08/16 at 01:30 Enoxaparin Sodium (Lovenox) 30 mg DAILY SC Last administered on 10/08/16 08:30 ; Admin Dose 30 MG; Start 10/08/16 at 09:00 Acetaminophen (Tylenol Tab) 650 mg Q4H PRN PO PAIN AND OR ELEVATED TEMP Last administered on 10/08/16 03:00; Admin Dose 650 MG; Start 10/08/16 at 01:30 Ondansetron HCl (Zofran Inj) 4 mg Q4H PRN IV NAUSEA AND/OR VOMITING; Start at 01:30 Morphine Sulfate (morphine) 2 mg Q2H PRN IV PAIN Last administered on t 11:21; Admin Dose 2 MG; Start 10/08/16 at 01:30 Procedures Procedures PROCEDURE: CT Abdomen and Pelvis with contrast. CLINICAL INDICATION: Abdomen and pelvis pain. History of sigmoid colon mass. TECHNIQUE: CT scan of the abdomen and pelvis without and with contrast was performed. The patient was scanned both before and following the uncomplicated intravenous administration of 90 cc of Omnipaque-300. Coronal and sagittal reformatted images were obtained from the axial source images. Images were reviewed on a high-resolution PACS workstation. Total exam DLP is 1068.55 mGy- cm. CTDIvol is 8.61 mGy. One or more of the following dose reduction techniques were used: Automated exposure control, adjustment of the mA and/or kV according to patient size, use of iterative reconstruction technique. COMPARISON: 10/07/2016. FINDINGS: There are new small bilateral pleural effusions. Mild atelectasis is present at the lung bases posteriorly. The lung bases are otherwise normal. The heart size is normal. There has been previous median sternotomy. There is extensive coronary artery calcification. There is no pericardial effusion. The liver is normal in size and attenuation. There is no focal hepatic lesion. The gallbladder and bile ducts are normal. The spleen is normal in size. There is no focal splenic lesion. Both adrenals are normal with no enlargement or mass. The pancreas is unremarkable with no mass or evidence of pancreatitis. Both kidneys demonstrate normal contrast enhancement. There is no renal mass, calculus, or hydronephrosis. The abdominal aorta is not dilated. There is calcification in the aorta consistent with atherosclerosis. There is no retroperitoneal lymphadenopathy or mass. There is no pelvic lymphadenopathy or mass. The urinary bladder is distended but otherwise normal the ureters are unremarkable. There is extensive distension of the colon with very large amount of stool and gas throughout. This may indicate distal obstruction. No definite obstructing lesion is visualized. The small bowel is grossly normal. There is no free fluid or free gas. There are degenerative changes of the spine and lumbar scoliosis convex right. There is a right hip total arthroplasty. IMPRESSION: 1. New small bilateral pleural effusions. 2. Mild atelectasis at the lung bases posteriorly. 3. Previous median sternotomy. 4. Coronary artery calcification. 5. Atherosclerotic calcification in the aorta. 6. Distended urinary bladder. 7. Extensive distension of the colon with large amount of stool and gas throughout. This may indicate distal obstruction. No obstructing lesion is visualized. 8. Degenerative changes of the spine. 9. Right hip total arthroplasty. ZULMA FRIEDMAN Oct 08, 2016 16:19
[2016-10-08 19:52] LABS: CK-MB 4.9 ng/ml (0.0-2.4); TROPONIN-I 0.389 ng/ml (0.00-0.12)
[2016-10-08] MEDS: TAMSULOSIN (SR) 0.4 MG CAP PO SCH (22:25)
[2016-10-08] MEDS: ATORVASTATIN 20 MG TAB PO SCH (22:26)
[2016-10-09] VITALS (13 sets, daily range): BP systolic 98–150; BP diastolic 58–66; PULSE 50–136; RESP 17–19
[2016-10-09] MEDS: morphine 2 MG INJ IV PRN ×3 (00:34→22:56)
[2016-10-09] MEDS: NEOMYC/POLYMYX/DEXAMETH OPH 5 ML BOTH EYES SCH ×6 (01:30→21:33)
[2016-10-09 06:14] LABS: MAGNESIUM 2.1 mg/dl (1.7-2.5); PHOSPHORUS 3.2 mg/dl (2.5-4.9)
[2016-10-09 06:19] LABS: POTASSIUM 4.8 mmol/L (3.5-5.1)
[2016-10-09 06:22] LABS: CREATININE 0.67 mg/dl (0.61-1.24)
[2016-10-09 06:23] LABS: CALCIUM 8.6 mg/dl (8.4-10.2)
[2016-10-09 06:29] LABS: BASOPHILS % 0.2 % (0.0-2.0); EOSINOPHILS # 0.1 10^3/ul (0.0-0.5); EOSINOPHILS % 1.6 % (0.0-7.0); HEMATOCRIT 35.3 % (42.0-52.0); HEMOGLOBIN 11.9 g/dl (14.0-18.0); LYMPHOCYTES # 0.7 10^3/ul (0.8-2.9); LYMPHOCYTES % 7.7 % (15.0-51.0); MEAN CORPUSCULAR HEMOGLOBIN 31.1 pg (29.0-33.0); MEAN CORPUSCULAR HGB CONC 33.9 g/dl (32.0-37.0); MEAN CORPUSCULAR VOLUME 91.8 fl (82.0-101.0); MEAN PLATELET VOLUME 7.9 fl (7.4-10.4); MONOCYTE # 0.4 10^3/ul (0.3-0.9); MONOCYTES % 4.3 % (0.0-11.0); NEUTROPHIL # 8.2 10^3/ul (1.6-7.5); NEUTROPHILS % 86.2 % (39.0-77.0); PLATELET COUNT 123 10^3/UL (140-440); RED BLOOD COUNT 3.84 10^6/ul (4.70-6.10); UNCORRECTED WBC 9.5 10^3/ul (4.8-10.8); WHITE BLOOD COUNT 9.5 10^3/ul (4.8-10.8)
[2016-10-09 06:51] LABS: CONDITION 1; LH ANALYZER COMMENTS 1
[2016-10-09] MEDS: DEXTROSE 5%-0.9% NACL 1,000 ML IV SCH ×2 (06:56→16:39)
[2016-10-09] MEDS: SENNA/DOCUSATE NA (8.6MG/50MG) TAB PO SCH ×2 (08:39→20:29)
[2016-10-09] MEDS: FINASTERIDE 5 MG TAB PO SCH (08:39)
[2016-10-09] MEDS: POLYETHYLENE GLYCOL 17 GM PACKET PO SCH ×2 (08:40→20:28)
[2016-10-09] MEDS: ASPIRIN (EC) 81 MG TAB PO SCH (08:40)
[2016-10-09] MEDS: CARBIDOPA/LEVODOPA (25/100) TAB PO SCH ×4 (08:40→20:29)
--- NOTE | 2016-10-09 11:42 | CONS ---
Date/Time of Note Date/Time of Note DATE: 10/09/16 TIME: 11:41 Assessment/Plan Assessment/Plan Additional Assessment/Plan Severe constipation with possible obstruction Mildly elevated troponin Preserved ejection fraction CAD with history of CABG Hypertension Preoperative cardiac risk stratification -Troponin trend has remained static and patient remains chest pain and shortness of breath free. Undergoing GI evaluation and treatment. Continue aspirin and statin therapy Consultation Date/Type/Reason Admit Date/Time Oct 07, 2016 at 22:48 Initial Consult Date Type of Consultation: cv 24 HR Interval Summary Free Text/Dictation Patient denies shortness of breath, chest pain Exam/Review of Systems Vital Signs Vitals Vital Signs Date Time Temp Pulse Resp B/P Pulse Ox O2 Delivery O2 Flow Rate FiO2 10/09/16 08:14 104 10/09/16 07:54 97.9 18 98/58 95 10/07/16 23:00 Room Air Intake and Output 10/08/16 10/08/16 10/09/16 15:00 23:00 07:00 Intake Total 420 ml 560 ml Output Total 650 ml 600 ml Balance 420 ml -90 ml -600 ml Exam No apparent distress, daughter at bedside Constitutional: alert, frail, oriented Head: normocephalic Neck: supple Respiratory: other (course breath sounds bilaterally, no wheezing) Cardiovascular: other (S1-S2 heard), regular rate and rhythm Gastrointestinal: bowel sounds, distended, tender (diffuse discomfort with palpation) Extremities: other (no edema) Results Result Diagram: 10/09/16 0555 10/09/16 0550 Results 24 hrs Laboratory Tests Test 10/08/16 13:00 10/08/16 18:40 10/09/16 05:50 10/09/16 05:55 Creatine Kinase 125 79 Creatine Kinase Index 4.3 6.2 Creatinine Kinase MB (Mass) 5.37 H 4.90 H Troponin I 0.371 *H 0.389 *H Anion Gap 17 H Blood Urea Nitrogen 23 #H Calcium Level 8.6 Carbon Dioxide Level 21 Chloride Level 105 Creatinine 0.67 Glucose Level 43 #*L Potassium Level 4.8 Sodium Level 138 Basophils # 0.0 Basophils % 0.2 Blood Morphology Comment Eosinophils # 0.1 Eosinophils % 1.6 Hematocrit 35.3 L Hemoglobin 11.9 L Lymphocytes # 0.7 L Lymphocytes % 7.7 L Magnesium Level 2.1 Mean Corpuscular Hemoglobin 31.1 Mean Corpuscular Hemoglobin Concent 33.9 Mean Corpuscular Volume 91.8 Mean Platelet Volume 7.9 Monocytes # 0.4 Monocytes % 4.3 Neutrophils # 8.2 H Neutrophils % 86.2 H Nucleated Red Blood Cells # 0.0 Nucleated Red Blood Cells % 0.0 Phosphorus Level 3.2 Platelet Count 123 #L Red Blood Count 3.84 L Red Cell Distribution Width 15.0 H White Blood Count 9.5 # Medications Medications Current Medications Aspirin (Halfprin) 81 mg DAILY PO Last administered on 10/09/16 08:40; Admin Dose 81 MG; Start 10/08/16 at 09:00 Carbidopa/Levodopa (Sinemet (25/ 100)) 1.5 tab QID PO Last administered on 10/09 08:40; Admin Dose 1.5 TAB; Start 10/08/16 at 09:00 Finasteride (Proscar) 5 mg DAILY PO Last administered on 10/09/16 08:39; Admin Dose 5 MG; Start 10/08/16 at 09:00 Neomycin/ Polymyxin/ Dexamethasone (Maxitrol Oph Susp) 1 drop Q4H BOTH EYES Last administered on 10/09/16 08:40; Admin Dose 1 DROP; Start 10/08/16 at 01:30 Tamsulosin HCl (Flomax) 0.4 mg QPM PO Last administered on 10/08/16 22:25; Admin Dose 0.4 MG; Start 10/08/16 at 21:00 Atorvastatin Calcium (Lipitor) 20 mg DAILY@21 PO Last administered on 22:26; Admin Dose 20 MG; Start 10/08/16 at 21:00 Polyethylene Glycol (Miralax) 17 gm BID PO Last administered on 10/09/16 08:40 ; Admin Dose 17 GM; Start 10/08/16 at 01:30 Senna/Docusate Sodium (Senokot-S) 2 tab BID PO Last administered on 10/09/16 08:39; Admin Dose 2 TAB; Start 10/08/16 at 01:30 Acetaminophen (Tylenol Tab) 650 mg Q4H PRN PO PAIN AND OR ELEVATED TEMP Last administered on 10/08/16 22:36; Admin Dose 650 MG; Start 10/08/16 at 01:30 Ondansetron HCl (Zofran Inj) 4 mg Q4H PRN IV NAUSEA AND/OR VOMITING; Start at 01:30 Morphine Sulfate 2 mg 2 mg Q2H PRN IV PAIN Last administered on 10/09/16 06:24 ; Admin Dose 2 MG; Start 10/08/16 at 01:30 Dextrose/Sodium Chloride (D5-NS) 1,000 ml @ 100 mls/hr Q10H IV Last administered on 10/09/16 06:56; Admin Dose 100 MLS/HR; Start 10/09/16 at 07:00 Billy Becerra DO Oct 09, 2016 11:42
[2016-10-09] MEDS: LACTULOSE 30ML CUP PO PRN ×2 (12:09→17:55)
--- NOTE | 2016-10-09 12:32 | CONS ---
DATE OF ADMISSION: 10/07/2016 DATE OF CONSULTATION: 10/09/2016 TYPE OF CONSULTATION: Gastroenterology. Dear Dr. He: Thank you for asking me to see Mr. Melo in GI consultation. As you know, the patient is an 81- year-old white gentleman who is admitted to the hospital because of abdominal distention and constip ation. For the past 1 week, he has not been able to have a good bowel movements and even on a long-t erm basis, he has significant constipation. Since admission CAT scan of the abdomen showed evidence of a dilated colon and a significant colonic stools. No vomiting and no rectal bleeding at this ti me. Occasionally he gets bloody stools when he is constipated. 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 He also has history of coronary artery bypass surgery twice. REVIEW OF SYSTEM: Coronary artery disease, parkinsonism, benign prostatic hypertrophy. MEDICATIONS: Prior to the admission includes: 1. Flomax. 2. Zocor. 3. Aldactone. 4. Aspirin. 5. Sinemet. 6. Lasix. 7. Maxitrol. 8. Proscar. 9. Co-Enzyme-Q. SOCIAL HISTORY: Does not smoke or drink. He used to be realtor. PHYSICAL EXAMINATION GENERAL: The patient is an 81-year-old white gentleman who at this time is alert, thin built. He i s cachectic. VITAL SIGNS: Afebrile. CARDIOVASCULAR: Normal heart sounds. RESPIRATORY: Normal breath sounds. ABDOMEN: Showed a distended abdomen, but not tender. RECTAL: Exam showed evidence of stool higher up. LABORATORY WORKUP: The potassium is 4.8, sodium 138, BUN is 23, creatinine 0.67, glucose 71, is cindy n to this morning. The troponin elevated to 0.89. The electrocardiogram, please look into the chart, the reports. The report says electrocardiogram s hows sinus bradycardia with first-degree AV block, right bundle branch block, left anterior fascicul ar block, bifascicular block, possible lateral infarct. The laboratory workup again, hemoglobin is 11.9 was 10.7 the other day, WBC is 9500, the platelet co unt 123,000. CLINICAL IMPRESSION: The patient presenting with a history of abdominal pain and constipation. CAT scan shows evidence of constipated colon and dilated colon. The reason for constipation is probably chronic irritable bowel syndrome with constipation, rule out hypothyroidism, rule out colorectal neoplasm. Patient had a colonoscopy many years ago which was r eported as normal. Other problems include her coronary artery disease, coronary artery bypass parkinsonism. PLAN: Recommend lactulose and repeat KUB and recommend GoLYTELY. Once the patient is clean the col onoscopy can be performed. Once again, , thank you for this consultation. Dictated By: DEVAN WORTHINGTON/CANDE Conf#: [id number] DID#: [id number]
[2016-10-09 12:45] LABS: T3 UPTAKE 42.6 % (23.5-40.5)
--- NOTE | 2016-10-09 13:47 | RADRPT ---
PROCEDURE: XR Abdomen 1 vw. CLINICAL INDICATION: Abdominal pain TECHNIQUE: AP view of the abdomen . COMPARISON: None. FINDINGS: No organomegaly is identified. There is a fecal filled distended colon. No small bowel distension is identified. No free air is identified. No calculi are identified. The axial skeleton is unremar kable. IMPRESSION: Fecal filled distended colon. RPTAT: [facility] .Suraj Chavez MD, MD Date Time Electronically viewed and signed by .Suraj Chavez MD, on 10/09/2016 13:47 .B/
--- NOTE | 2016-10-09 17:26 | PN ---
Date/Time of Note Date/Time of Note DATE: 10/09/16 TIME: 16:23 Assessment/Plan VTE Prophylaxis VTE Prophylaxis Intervention: SCD's Lines/Catheters IV Catheter Type (from Nrs): Peripheral IV Urinary Cath still in place: Yes Reason Cath still needed: urinary retention, other (indicate) (monitor UOP ) Assessment/Plan Assessment/Plan 81 yo male: 1. Constipation with possible obstipation Repeat CT abdo/pelvis with IV/po contrast showing extensive distension of the colon with large amount of stool and gas throughout. This may indicate distal obstruction. No obstructing lesion is visualized. AXR this afternoon with fecal filled colon, discussed with Dr Chicas, enema tonight and on multiple po agents and also OK for clears Prep through the weekend for colonoscopy Wednesday if possible. 2. Coronary artery disease and s/p previous coronary artery bypass grafting. Elevated troponins on this admission with no chest pain. Appreciate Dr Becerra's care and recommendations Continue current meds. 2D echo stable, EKG stable. 3. Parkinson Disease: continue Sinemet. 4. Lower ext weakness: progressive lately per patient, given also distended bladder and constipation, will plan for CT or MRI T/L spine after relief of constipation, hopefully sometimes this . 5. Distended bladder, ? urinary retention due to severe constipation, Dc catheter was placed and renal function stable Prophylaxis: DVT ppx with Lovenox and GI prophylaxis with PPI Disposition: Bowel regimen and dc catheter, Dr Chicas will see in AM Subjective 24 Hr Interval Summary Free Text/Dictation Patient doing well and needs to have additional laxatives today on bowel regimen and management He is to have colonoscopy if possible Wednesday Exam/Review of Systems Vital Signs Vitals Vital Signs Date Time Temp Pulse Resp B/P Pulse Ox O2 Delivery O2 Flow Rate FiO2 10/09/16 16:11 56 10/09/16 15:56 97.8 18 125/62 95 10/07/16 23:00 Room Air Intake and Output 10/08/16 10/08/16 10/09/16 15:00 23:00 07:00 Intake Total 420 ml 560 ml Output Total 650 ml 600 ml Balance 420 ml -90 ml -600 ml Exam Constitutional: alert, frail, oriented Respiratory: clear to auscultation, normal air movement Cardiovascular: nl pulses, regular rate and rhythm Gastrointestinal: non-tender, soft Musculoskeletal: nl extremities to inspection Extremities: normal pulses, other (no edema, clubbing or cyanosis ) Neurological: 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, nl mental status, nl speech, other ( genralized weakness and chronic LLE pain ) Results Result Diagram: 10/09/16 0555 10/09/16 0550 Results 24 hrs Laboratory Tests Test 10/08/16 18:40 10/09/16 05:50 10/09/16 05:55 Creatine Kinase 79 Creatine Kinase Index 6.2 Creatinine Kinase MB (Mass) 4.90 H Troponin I 0.389 *H Anion Gap 17 H Blood Urea Nitrogen 23 #H Calcium Level 8.6 Carbon Dioxide Level 21 Chloride Level 105 Creatinine 0.67 Glucose Level 43 #*L Potassium Level 4.8 Sodium Level 138 Basophils # 0.0 Basophils % 0.2 Blood Morphology Comment Eosinophils # 0.1 Eosinophils % 1.6 Free Thyroxine Index 3.15 Hematocrit 35.3 L Hemoglobin 11.9 L Lymphocytes # 0.7 L Lymphocytes % 7.7 L Magnesium Level 2.1 Mean Corpuscular Hemoglobin 31.1 Mean Corpuscular Hemoglobin Concent 33.9 Mean Corpuscular Volume 91.8 Mean Platelet Volume 7.9 Monocytes # 0.4 Monocytes % 4.3 Neutrophils # 8.2 H Neutrophils % 86.2 H Nucleated Red Blood Cells # 0.0 Nucleated Red Blood Cells % 0.0 Phosphorus Level 3.2 Platelet Count 123 #L Red Blood Count 3.84 L Red Cell Distribution Width 15.0 H Thyroxine (T4) 7.4 Triiodothyronine (T3) Uptake 42.6 H White Blood Count 9.5 # Medications Medications Current Medications Aspirin (Halfprin) 81 mg DAILY PO Last administered on 10/09/16 08:40; Admin Dose 81 MG; Start 10/08/16 at 09:00 Carbidopa/Levodopa (Sinemet (25/ 100)) 1.5 tab QID PO Last administered on 10/09 12:09; Admin Dose 1.5 TAB; Start 10/08/16 at 09:00 Finasteride (Proscar) 5 mg DAILY PO Last administered on 10/09/16 08:39; Admin Dose 5 MG; Start 10/08/16 at 09:00 Neomycin/ Polymyxin/ Dexamethasone (Maxitrol Oph Susp) 1 drop Q4H BOTH EYES Last administered on 10/09/16 08:40; Admin Dose 1 DROP; Start 10/08/16 at 01:30 Tamsulosin HCl (Flomax) 0.4 mg QPM PO Last administered on 10/08/16 22:25; Admin Dose 0.4 MG; Start 10/08/16 at 21:00 Atorvastatin Calcium (Lipitor) 20 mg DAILY@21 PO Last administered on 22:26; Admin Dose 20 MG; Start 10/08/16 at 21:00 Polyethylene Glycol (Miralax) 17 gm BID PO Last administered on 10/09/16 08:40 ; Admin Dose 17 GM; Start 10/08/16 at 01:30 Senna/Docusate Sodium (Senokot-S) 2 tab BID PO Last administered on 10/09/16 08:39; Admin Dose 2 TAB; Start 10/08/16 at 01:30 Acetaminophen (Tylenol Tab) 650 mg Q4H PRN PO PAIN AND OR ELEVATED TEMP Last administered on 10/08/16 22:36; Admin Dose 650 MG; Start 10/08/16 at 01:30 Ondansetron HCl (Zofran Inj) 4 mg Q4H PRN IV NAUSEA AND/OR VOMITING; Start at 01:30 Morphine Sulfate 2 mg 2 mg Q2H PRN IV PAIN Last administered on 10/09/16 06:24 ; Admin Dose 2 MG; Start 10/08/16 at 01:30 Dextrose/Sodium Chloride (D5-NS) 1,000 ml @ 100 mls/hr Q10H IV Last administered on 10/09/16 06:56; Admin Dose 100 MLS/HR; Start 10/09/16 at 07:00 Lactulose (Enulose) 20 gm Q6H PRN PO CONSTIPATION Last administered on 12:09; Admin Dose 20 GM; Start 10/09/16 at 12:00 Procedures Procedures PROCEDURE: XR Abdomen 1 vw. CLINICAL INDICATION: Abdominal pain TECHNIQUE: AP view of the abdomen . COMPARISON: None. FINDINGS: No organomegaly is identified. There is a fecal filled distended colon. No small bowel distension is identified. No free air is identified. No calculi are identified. The axial skeleton is unremarkable. IMPRESSION: Fecal filled distended colon. RPTAT: HGDB ZULMA FRIEDMAN Oct 09, 2016 16:33
[2016-10-09] MEDS: ATORVASTATIN 20 MG TAB PO SCH (20:28)
[2016-10-09] MEDS: TAMSULOSIN (SR) 0.4 MG CAP PO SCH (20:28)
[2016-10-09] MEDS ORDERED: MINERAL OIL 133 ML ENEMA PR ONE (21:00)
[2016-10-10] VITALS (12 sets, daily range): BP systolic 107–143; BP diastolic 20–68; PULSE 56–70; RESP 18
[2016-10-10] MEDS: ACETAMINOPHEN 325 MG TAB PO PRN (01:05)
[2016-10-10] MEDS: NEOMYC/POLYMYX/DEXAMETH OPH 5 ML BOTH EYES SCH ×6 (01:07→20:55)
[2016-10-10] MEDS: morphine 2 MG INJ IV PRN ×4 (02:40→19:07)
[2016-10-10] MEDS: DEXTROSE 5%-0.9% NACL 1,000 ML IV SCH ×3 (02:42→23:00)
[2016-10-10] MEDS: FINASTERIDE 5 MG TAB PO SCH (08:01)
[2016-10-10] MEDS: POLYETHYLENE GLYCOL 17 GM PACKET PO SCH ×2 (08:01→20:54)
[2016-10-10] MEDS: CARBIDOPA/LEVODOPA (25/100) TAB PO SCH ×4 (08:01→20:54)
[2016-10-10] MEDS: ASPIRIN (EC) 81 MG TAB PO SCH (08:01)
[2016-10-10] MEDS: SENNA/DOCUSATE NA (8.6MG/50MG) TAB PO SCH ×2 (08:01→20:54)
[2016-10-10 11:12] LABS: BASOPHILS % 0.1 % (0.0-2.0); EOSINOPHILS # 0.1 10^3/ul (0.0-0.5); EOSINOPHILS % 1.3 % (0.0-7.0); HEMATOCRIT 36.8 % (42.0-52.0); HEMOGLOBIN 12.3 g/dl (14.0-18.0); LYMPHOCYTES # 0.4 10^3/ul (0.8-2.9); LYMPHOCYTES % 4.7 % (15.0-51.0); MEAN CORPUSCULAR HEMOGLOBIN 30.7 pg (29.0-33.0); MEAN CORPUSCULAR HGB CONC 33.5 g/dl (32.0-37.0); MEAN CORPUSCULAR VOLUME 91.8 fl (82.0-101.0); MEAN PLATELET VOLUME 7.7 fl (7.4-10.4); MONOCYTE # 0.5 10^3/ul (0.3-0.9); MONOCYTES % 6.5 % (0.0-11.0); NEUTROPHIL # 6.5 10^3/ul (1.6-7.5); NEUTROPHILS % 87.4 % (39.0-77.0); PLATELET COUNT 143 10^3/UL (140-440); RED BLOOD COUNT 4.01 10^6/ul (4.70-6.10); UNCORRECTED WBC 7.4 10^3/ul (4.8-10.8); WHITE BLOOD COUNT 7.4 10^3/ul (4.8-10.8)
[2016-10-10 11:14] LABS: CONDITION 1; LH ANALYZER COMMENTS 1
[2016-10-10 11:19] LABS: POTASSIUM 4.3 mmol/L (3.5-5.1)
[2016-10-10 11:22] LABS: CREATININE 0.6 mg/dl (0.61-1.24)
[2016-10-10 11:23] LABS: CALCIUM 8.4 mg/dl (8.4-10.2); MAGNESIUM 2.1 mg/dl (1.7-2.5)
[2016-10-10 12:26] LABS: CK-MB 11.8 ng/ml (0.0-2.4); TROPONIN-I 3.95 ng/ml (0.00-0.12)
--- NOTE | 2016-10-10 15:01 | PN ---
Date/Time of Note Date/Time of Note DATE: 10/10/16 TIME: 14:08 Assessment/Plan VTE Prophylaxis VTE Prophylaxis Intervention: other (removed SCDs due to pain ) Lines/Catheters IV Catheter Type (from Nrsg): Peripheral IV Urinary Cath still in place: Yes Reason Cath still needed: urinary retention, other (indicate) (monitor UOP ) Assessment/Plan Assessment/Plan 81 yo male: 1. Constipation with possible obstipation Repeat CT abdo/pelvis with IV/po contrast showing extensive distension of the colon with large amount of stool and gas throughout. This may indicate distal obstruction. No obstructing lesion is visualized. AXR to be repeated in AM, Dr Chicas following, continue bowel regimen and on multiple po agents Clear liquid diet as tolerated. Prep through the weekend for colonoscopy Wednesday if stable and possible. 2. Coronary artery disease and s/p previous coronary artery bypass grafting. Episode of A fib overnight Elevated troponins and even seems to have gone up further today, vs lab error as patient denies chest pain Repeat EKG unchanged and in SR, will trend cardiac enzymes and follow up further Cardiology recs Continue ASA. Continue current meds. 2D echo stable. 3. Parkinson Disease: continue Sinemet. 4. Lower ext weakness: progressive lately per patient, given also distended bladder and constipation, Will plan for CT or MRI T/L spine after some relief of constipation, hopefully sometimes this . Doppler LE pending 5. Distended bladder, ? urinary retention due to severe constipation, Bishop catheter was placed and renal function stable Prophylaxis: DVT ppx with SCDs but had to be discontinued due to leg pain and GI prophylaxis with PPI Disposition: Bowel regimen, Cardiac re-evaluation and follow up further cardiology and GI recs. Subjective 24 Hr Interval Summary Free Text/Dictation Patient doing OK and remains stable, Severe LLE exacerbated with SCDs. Large, BM x 2 overnight. Troponin up to 3.9 per latest lab, ? error vs accurate No chest pain, ? some episode of A fib Exam/Review of Systems Vital Signs Vitals Vital Signs Date Time Temp Pulse Resp B/P Pulse Ox O2 Delivery O2 Flow Rate FiO2 10/10/16 12:05 60 10/10/16 11:55 97.9 18 107/60 95 10/07/16 23:00 Room Air Intake and Output 10/09/16 10/09/16 10/10/16 15:00 23:00 07:00 Intake Total 1630 ml 1550 ml Output Total 750 ml 450 ml Balance 880 ml 1100 ml Exam Constitutional: alert, frail, oriented Respiratory: clear to auscultation, normal air movement Cardiovascular: nl pulses, regular rate and rhythm Gastrointestinal: distended (more or less ), non-tender, soft Musculoskeletal: other (LLE pain or cramping) Extremities: normal pulses, other (no edema, clubbing or cyanosis ) 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, nl mental status, nl speech, other (stable generalized weakness ) Results Result Diagram: 10/10/16 1031 10/10/16 1031 Results 24 hrs Laboratory Tests Test 10/10/16 10:30 10/10/16 10:31 Thyroid Stimulating Hormone (TSH) 2.210 Anion Gap 10 # Basophils # 0.0 Basophils % 0.1 Blood Morphology Comment Blood Urea Nitrogen 11 # Calcium Level 8.4 Carbon Dioxide Level 27 Chloride Level 106 Creatine Kinase 178 Creatine Kinase Index 6.6 Creatinine 0.60 L Creatinine Kinase MB (Mass) 11.80 H Eosinophils # 0.1 Eosinophils % 1.3 Glucose Level 117 # Hematocrit 36.8 L Hemoglobin 12.3 L Lymphocytes # 0.4 L Lymphocytes % 4.7 L Magnesium Level 2.1 Mean Corpuscular Hemoglobin 30.7 Mean Corpuscular Hemoglobin Concent 33.5 Mean Corpuscular Volume 91.8 Mean Platelet Volume 7.7 Monocytes # 0.5 Monocytes % 6.5 Neutrophils # 6.5 Neutrophils % 87.4 H Nucleated Red Blood Cells # 0.0 Nucleated Red Blood Cells % 0.0 Platelet Count 143 Potassium Level 4.3 Red Blood Count 4.01 L Red Cell Distribution Width 15.0 H Sodium Level 139 Troponin I 3.950 *H White Blood Count 7.4 # Medications Medications Current Medications Aspirin (Halfprin) 81 mg DAILY PO Last administered on 10/10/16 08:01; Admin Dose 81 MG; Start 10/08/16 at 09:00 Carbidopa/Levodopa (Sinemet (25/ 100)) 1.5 tab QID PO Last administered on 10/10 08:01; Admin Dose 1.5 TAB; Start 10/08/16 at 09:00 Finasteride (Proscar) 5 mg DAILY PO Last administered on 10/10/16 08:01; Admin Dose 5 MG; Start 10/08/16 at 09:00 Neomycin/ Polymyxin/ Dexamethasone (Maxitrol Oph Susp) 1 drop Q4H BOTH EYES Last administered on 10/10/16 08:00; Admin Dose 1 DROP; Start 10/08/16 at 01:30 Tamsulosin HCl (Flomax) 0.4 mg QPM PO Last administered on 10/09/16 20:28; Admin Dose 0.4 MG; Start 10/08/16 at 21:00 Atorvastatin Calcium (Lipitor) 20 mg DAILY@21 PO Last administered on 20:28; Admin Dose 20 MG; Start 10/08/16 at 21:00 Polyethylene Glycol (Miralax) 17 gm BID PO Last administered on 10/10/16 08:01 ; Admin Dose 17 GM; Start 10/08/16 at 01:30 Senna/Docusate Sodium (Senokot-S) 2 tab BID PO Last administered on 10/10/16 08:01; Admin Dose 2 TAB; Start 10/08/16 at 01:30 Acetaminophen (Tylenol Tab) 650 mg Q4H PRN PO PAIN AND OR ELEVATED TEMP Last administered on 10/10/16 01:05; Admin Dose 650 MG; Start 10/08/16 at 01:30 Ondansetron HCl (Zofran Inj) 4 mg Q4H PRN IV NAUSEA AND/OR VOMITING; Start at 01:30 Morphine Sulfate 2 mg 2 mg Q2H PRN IV PAIN Last administered on 10/10/16 13:22 ; Admin Dose 2 MG; Start 10/08/16 at 01:30 Dextrose/Sodium Chloride (D5-NS) 1,000 ml @ 100 mls/hr Q10H IV Last administered on 10/10/16 02:42; Admin Dose 100 MLS/HR; Start 10/09/16 at 07:00 Lactulose (Enulose) 20 gm Q6H PRN PO CONSTIPATION Last administered on 17:55; Admin Dose 20 GM; Start 10/09/16 at 12:00 ZULMA FRIEDMAN Oct 10, 2016 14:18
--- NOTE | 2016-10-10 17:49 | RADRPT ---
PROCEDURE: US bilateral lower extremity veins. CLINICAL INDICATION: Bilateral leg pain and swelling. TECHNIQUE: Multiple longitudinal and transverse images of the bilateral lower extremity veins were obtained with mccormack scale and color Doppler imaging. The common femoral vein, femoral vein, and popl iteal vein were evaluated. 2D grayscale measurements with compression sonography, color Doppler, and pulsed Doppler with augmentation. COMPARISON: No prior studies are available for comparison. FINDINGS: The bilateral common femoral, femoral and popliteal veins are normally compressible throughout. Col or flow demonstrates normal filling of the vessels. Normal waveforms are visualized and there is no rmal response to augmentation. IMPRESSION: 1. No evidence of deep vein thrombosis involving either lower extremity. RPTAT: QQ .Barrera Wood MD, MD Date Time Electronically viewed and signed by .Barrera Wood MD, on 10/10/2016 17:48 .R/
[2016-10-10 19:34] LABS: CK-MB 6.76 ng/ml (0.0-2.4); TROPONIN-I 3.75 ng/ml (0.00-0.12)
[2016-10-10] MEDS: TAMSULOSIN (SR) 0.4 MG CAP PO SCH (20:52)
[2016-10-10] MEDS: ATORVASTATIN 40 MG TAB PO SCH (20:52)
[2016-10-10] MEDS: ATORVASTATIN 20 MG TAB PO SCH (20:53)
[2016-10-10 23:41] LABS: CK-MB 4.55 ng/ml (0.0-2.4); TROPONIN-I 3.25 ng/ml (0.00-0.12)
[2016-10-11] VITALS (12 sets, daily range): BP systolic 124–163; BP diastolic 68–78; PULSE 59–77; RESP 18–21
[2016-10-11] MEDS: DEXTROSE 5%-0.9% NACL 1,000 ML IV SCH ×2 (00:15→15:57)
[2016-10-11] MEDS: NEOMYC/POLYMYX/DEXAMETH OPH 5 ML BOTH EYES SCH ×6 (01:30→20:36)
--- NOTE | 2016-10-11 04:08 | PN ---
DATE: 10/10/2016 CARDIOLOGY FOLLOWUP SUBJECTIVE: The patient with episodes of wide complex tachycardia, nonsustained VT overnight. Semaj es any chest pain or pressure to me. Denies any palpitation. Complains of leg pain. MEDICATIONS: Reviewed. OBJECTIVE: VITAL SIGNS: Temperature 97.7, heart rate 70, blood pressure 140/60, respiration rate of 18, satura ting 99%. HEENT: Normocephalic, atraumatic. Pupils are equal. GENERAL: Cachectic, thin gentleman. CARDIOVASCULAR: Regular rate and rhythm, systolic murmur. PULMONARY: With no wheezes heard. Minimal rhonchi at the base. GASTROINTESTINAL: Distended, otherwise no rebound or guarding. EXTREMITIES: Positive lower extremity edema. NEUROLOGIC: Awake. PSYCHIATRIC: Appears to be anxious but pleasant. LABORATORY: Sodium 139, potassium 4.3, BUN of 11, creatinine 0.6, glucose 117. Troponin of 3.9 wit h total CK of 178, MB fraction of 11.8. TSH 2.2. ASSESSMENT AND PLAN: 1. Abnormal troponin consistent with non-ST elevation myocardial infarction. 2. Coronary artery disease with history of coronary artery bypass twice per his report. 3. Constipation. 4. History of hypertension. 5. History of Parkinson disease. 6. Dyslipidemia. RECOMMENDATIONS: I will start the patient on aspirin, Lipitor, and carvedilol for now. Different o ptions including cardiac catheterization discussed with the patient. The patient said that he is no t interested in having any angiography done. therapy. For now, we will continue to monitor h im closely. Dictated By: YAW RUTHERFORD MD AV/CANDE Conf#: [id number] DID#: [id number] CC: ZULMA FRIEDMAN MD;*End*
[2016-10-11 07:09] LABS: BASOPHILS % 0.4 % (0.0-2.0); EOSINOPHILS # 0.1 10^3/ul (0.0-0.5); EOSINOPHILS % 1.2 % (0.0-7.0); HEMATOCRIT 37.9 % (42.0-52.0); HEMOGLOBIN 12.8 g/dl (14.0-18.0); LYMPHOCYTES # 0.5 10^3/ul (0.8-2.9); MEAN CORPUSCULAR HGB CONC 33.6 g/dl (32.0-37.0); MEAN CORPUSCULAR VOLUME 92.2 fl (82.0-101.0); MONOCYTE # 0.6 10^3/ul (0.3-0.9); MONOCYTES % 7.5 % (0.0-11.0); NEUTROPHIL # 6.7 10^3/ul (1.6-7.5); NEUTROPHILS % 84.9 % (39.0-77.0); PLATELET COUNT 134 10^3/UL (140-440); RED BLOOD COUNT 4.12 10^6/ul (4.70-6.10); RED CELL DISTRIBUTION WIDTH 14.9 % (11.5-14.5); UNCORRECTED WBC 7.9 10^3/ul (4.8-10.8); WHITE BLOOD COUNT 7.9 10^3/ul (4.8-10.8)
[2016-10-11 07:10] LABS: CONDITION 1; LH ANALYZER COMMENTS 1
[2016-10-11 07:41] LABS: CK-MB 3.2 ng/ml (0.0-2.4)
[2016-10-11 07:46] LABS: PHOSPHORUS 2.6 mg/dl (2.5-4.9)
[2016-10-11 07:49] LABS: ALBUMIN 2.6 g/dl (3.3-4.9); POTASSIUM 4.3 mmol/L (3.5-5.1); TROPONIN-I 3.18 ng/ml (0.00-0.12)
[2016-10-11 07:51] LABS: CREATININE 0.5 mg/dl (0.61-1.24)
[2016-10-11 07:52] LABS: ALBUMIN/GLOBULIN RATIO 1.08; BILIRUBIN,INDIRECT 0.6 mg/dl (0-1.1); BILIRUBIN,TOTAL 0.6 mg/dl (0.2-1.3); CALCIUM 8.4 mg/dl (8.4-10.2)
[2016-10-11] MEDS: POLYETHYLENE GLYCOL 17 GM PACKET PO SCH ×2 (09:27→20:36)
[2016-10-11] MEDS: FINASTERIDE 5 MG TAB PO SCH (09:28)
[2016-10-11] MEDS: CARBIDOPA/LEVODOPA (25/100) TAB PO SCH ×4 (09:28→20:35)
[2016-10-11] MEDS: SENNA/DOCUSATE NA (8.6MG/50MG) TAB PO SCH ×2 (09:28→20:35)
[2016-10-11] MEDS: ASPIRIN (EC) 81 MG TAB PO SCH (09:29)
--- NOTE | 2016-10-11 10:35 | RADRPT ---
PROCEDURE: XR Abdomen. CLINICAL INDICATION: Abdomen pain. TECHNIQUE: AP supine abdomen x-ray. COMPARISON: 10/09/2016. FINDINGS: There are sternal wires and mediastinal clips. There is a large amount of stool throughout the colo n consistent with constipation. Surgical clips are present in the lower abdomen. There is a Bishop catheter in the bladder. There is no evidence of bowel obstruction. There are no abnormal calcifications overlying the urinary tracts. There are degenerative changes of the spine and lumbar scoliosis convex right. There is a right hip total arthroplasty. Vascular calcifications are present consistent with atherosclerosis. IMPRESSION: 1. Unchanged constipation. 2. No other new abnormality when compared with 10/09/2016. RPTAT: QQ .Barrera Wood MD, MD Date Time Electronically viewed and signed by .Barrera Wood MD, MD on 10/11/2016 10:35 .R/
--- NOTE | 2016-10-11 11:44 | PN ---
Date/Time of Note Date/Time of Note DATE: 10/11/16 TIME: 11:02 Assessment/Plan VTE Prophylaxis VTE Prophylaxis Intervention: SCD's Lines/Catheters IV Catheter Type (from Nrs): Peripheral IV Urinary Cath still in place: Yes Reason Cath still needed: other (indicate) (monitor UOP ) Assessment/Plan Assessment/Plan 81 yo male: 1. Constipation with possible obstipation Repeat CT abdo/pelvis with IV/po contrast showing extensive distension of the colon with large amount of stool and gas throughout. This may indicate distal obstruction. No obstructing lesion is visualized. AXR unchanged this AM Continue bowel regimen, on multiple po agents, Tap water enema, manual disimpaction prn Clear liquid diet as tolerated. Will re discuss need and timing of colonoscopy with GI as patient with NSTEMI. 2. Coronary artery disease and s/p previous coronary artery bypass grafting. Episode of A fib overnight, CE c/w with NSTEMI Continue ASA, Coreg and conservative management . Continue current meds. 2D echo stable. Cardiology following 3. Parkinson Disease: continue Sinemet. 4. Lower ext weakness: progressive lately per patient, given also distended bladder and constipation, Doppler negative Will plan for CT or MRI T/L spine after some relief of constipation if needed 5. Distended bladder, ? urinary retention due to severe constipation, Bishop catheter was placed and renal function stable. D/c Bishop in the next 24 hrs Prophylaxis: Lovenox for DVT ppx and GI prophylaxis with PPI Disposition: Bowel regimen, Cardiac re-evaluation and follow up further cardiology and GI recs. Subjective 24 Hr Interval Summary Free Text/Dictation Patient doing well, still with abdo distension and AXR unchanged still with colon full of stool NSTEMI with now troponins trending down No chest pain and no additional A fib episode, now with frequent PACs Exam/Review of Systems Vital Signs Vitals Vital Signs Date Time Temp Pulse Resp B/P Pulse Ox O2 Delivery O2 Flow Rate FiO2 10/11/16 08:05 69 10/11/16 07:32 99.2 19 163/78 97 10/07/16 23:00 Room Air Intake and Output 10/10/16 10/10/16 10/11/16 14:59 22:59 06:59 Intake Total 500 ml 800 ml Output Total 650 ml 400 ml Balance -150 ml 400 ml Exam Constitutional: alert, frail, oriented Respiratory: clear to auscultation, normal air movement Cardiovascular: nl pulses, regular rate and rhythm Gastrointestinal: distended (better but still with fecal filled colon ), soft Musculoskeletal: nl extremities to inspection Extremities: normal pulses, other (no edema, clubbing or cyanosis ) Results Result Diagram: 10/11/16 0516 10/11/16 0516 Results 24 hrs Laboratory Tests Test 10/10/16 18:45 10/10/16 22:55 10/11/16 05:16 Creatine Kinase 121 110 73 Creatine Kinase Index 5.6 4.1 4.4 Creatinine Kinase MB (Mass) 6.76 H 4.55 H 3.20 H Troponin I 3.750 *H 3.250 *H 3.180 *H Alanine Aminotransferase (ALT/SGPT) 21 Albumin 2.6 L Albumin/Globulin Ratio 1.08 Alkaline Phosphatase 63 Anion Gap 11 Aspartate Amino Transf (AST/SGOT) 42 Basophils # 0.0 Basophils % 0.4 Blood Morphology Comment Blood Urea Nitrogen 9 Calcium Level 8.4 Carbon Dioxide Level 28 Chloride Level 103 Cholesterol Level 135 Cholesterol/HDL Ratio 3.0 Creatinine 0.50 L Direct Bilirubin 0.00 Eosinophils # 0.1 Eosinophils % 1.2 Globulin 2.40 Glucose Level 90 HDL Cholesterol 44 Hematocrit 37.9 L Hemoglobin 12.8 L Indirect Bilirubin 0.6 LDL Cholesterol, Calculated 70 Lymphocytes # 0.5 L Lymphocytes % 6.0 L Magnesium Level 2.0 Mean Corpuscular Hemoglobin 31.0 Mean Corpuscular Hemoglobin Concent 33.6 Mean Corpuscular Volume 92.2 Mean Platelet Volume 8.0 Monocytes # 0.6 Monocytes % 7.5 Neutrophils # 6.7 Neutrophils % 84.9 H Nucleated Red Blood Cells # 0.0 Nucleated Red Blood Cells % 0.0 Phosphorus Level 2.6 Platelet Count 134 L Potassium Level 4.3 Red Blood Count 4.12 L Red Cell Distribution Width 14.9 H Sodium Level 138 Total Bilirubin 0.6 Total Protein 5.0 L Triglycerides Level 105 White Blood Count 7.9 Medications Medications Current Medications Aspirin (Halfprin) 81 mg DAILY PO Last administered on 10/11/16 09:29; Admin Dose 81 MG; Start 10/08/16 at 09:00 Carbidopa/Levodopa (Sinemet (25/ 100)) 1.5 tab QID PO Last administered on 10/11 09:28; Admin Dose 1.5 TAB; Start 10/08/16 at 09:00 Finasteride (Proscar) 5 mg DAILY PO Last administered on 10/11/16 09:28; Admin Dose 5 MG; Start 10/08/16 at 09:00 Neomycin/ Polymyxin/ Dexamethasone (Maxitrol Oph Susp) 1 drop Q4H BOTH EYES Last administered on 10/11/16 09:30; Admin Dose 1 DROP; Start 10/08/16 at 01:30 Tamsulosin HCl (Flomax) 0.4 mg QPM PO Last administered on 10/10/16 20:52; Admin Dose 0.4 MG; Start 10/08/16 at 21:00 Atorvastatin Calcium (Lipitor) 20 mg DAILY@21 PO Last administered on 20:28; Admin Dose 20 MG; Start 10/08/16 at 21:00 Polyethylene Glycol (Miralax) 17 gm BID PO Last administered on 10/11/16 09:27 ; Admin Dose 17 GM; Start 10/08/16 at 01:30 Senna/Docusate Sodium (Senokot-S) 2 tab BID PO Last administered on 10/11/16 09:28; Admin Dose 2 TAB; Start 10/08/16 at 01:30 Acetaminophen (Tylenol Tab) 650 mg Q4H PRN PO PAIN AND OR ELEVATED TEMP Last administered on 10/10/16 01:05; Admin Dose 650 MG; Start 10/08/16 at 01:30 Ondansetron HCl (Zofran Inj) 4 mg Q4H PRN IV NAUSEA AND/OR VOMITING; Start at 01:30 Morphine Sulfate 2 mg 2 mg Q2H PRN IV PAIN Last administered on 10/10/16 19:07 ; Admin Dose 2 MG; Start 10/08/16 at 01:30 Dextrose/Sodium Chloride (D5-NS) 1,000 ml @ 100 mls/hr Q10H IV Last administered on 10/11/16 00:15; Admin Dose 100 MLS/HR; Start 10/09/16 at 07:00 Lactulose (Enulose) 20 gm Q6H PRN PO CONSTIPATION Last administered on 17:55; Admin Dose 20 GM; Start 10/09/16 at 12:00 Carvedilol (Coreg) 3.125 mg BID PO Last administered on 10/11/16 09:29; Admin Dose 3.125 MG; Start 10/10/16 at 21:00 Atorvastatin Calcium (Lipitor) 40 mg HS PO Last administered on 10/10/16 20:52 ; Admin Dose 40 MG; Start 10/10/16 at 21:00 Procedures Procedures PROCEDURE: US bilateral lower extremity veins. CLINICAL INDICATION: Bilateral leg pain and swelling. TECHNIQUE: Multiple longitudinal and transverse images of the bilateral lower extremity veins were obtained with mccormack scale and color Doppler imaging. The common femoral vein, femoral vein, and popliteal vein were evaluated. 2D grayscale measurements with compression sonography, color Doppler, and pulsed Doppler with augmentation. COMPARISON: No prior studies are available for comparison. FINDINGS: The bilateral common femoral, femoral and popliteal veins are normally compressible throughout. Color flow demonstrates normal filling of the vessels. Normal waveforms are visualized and there is normal response to augmentation. IMPRESSION: 1. No evidence of deep vein thrombosis involving either lower extremity. RPTAT: QQ .Barrera Wood MD, MD Date Time Electronically viewed and signed by .Barrera Wood MD, MD on 10/10/2016 17:48 ZULMA FRIEDMAN Oct 11, 2016 11:13
[2016-10-11] MEDS: ACETAMINOPHEN 325 MG TAB PO PRN (11:48)
[2016-10-11 15:59] LABS: CK-MB 2.74 ng/ml (0.0-2.4); TROPONIN-I 2.26 ng/ml (0.00-0.12)
[2016-10-11] MEDS: ATORVASTATIN 40 MG TAB PO SCH (20:35)
[2016-10-11] MEDS: TAMSULOSIN (SR) 0.4 MG CAP PO SCH (20:35)
[2016-10-11] MEDS: ATORVASTATIN 20 MG TAB PO SCH (20:35)
[2016-10-12] VITALS (12 sets, daily range): BP systolic 101–174; BP diastolic 58–81; PULSE 59–82; RESP 18–20
[2016-10-12] MEDS: NEOMYC/POLYMYX/DEXAMETH OPH 5 ML BOTH EYES SCH ×6 (01:33→20:55)
[2016-10-12] MEDS: morphine 2 MG INJ IV PRN ×2 (01:39→10:54)
[2016-10-12] MEDS: DEXTROSE 5%-0.9% NACL 1,000 ML IV SCH ×2 (04:16→21:02)
[2016-10-12] MEDS ORDERED: CARBIDOPA/LEVODOPA (25/100) TAB PO SCH (07:30)
[2016-10-12 08:07] LABS: POTASSIUM 3.8 mmol/L (3.5-5.1)
[2016-10-12 08:08] LABS: MAGNESIUM 1.9 mg/dl (1.7-2.5)
[2016-10-12 08:09] LABS: CREATININE 0.58 mg/dl (0.61-1.24)
[2016-10-12 08:11] LABS: CALCIUM 8.2 mg/dl (8.4-10.2)
[2016-10-12 08:25] LABS: BASOPHILS % 0.2 % (0.0-2.0); EOSINOPHILS # 0.1 10^3/ul (0.0-0.5); HEMATOCRIT 40.6 % (42.0-52.0); HEMOGLOBIN 13.5 g/dl (14.0-18.0); LYMPHOCYTES # 0.4 10^3/ul (0.8-2.9); LYMPHOCYTES % 4.4 % (15.0-51.0); MEAN CORPUSCULAR HEMOGLOBIN 30.8 pg (29.0-33.0); MEAN CORPUSCULAR HGB CONC 33.3 g/dl (32.0-37.0); MEAN CORPUSCULAR VOLUME 92.4 fl (82.0-101.0); MONOCYTE # 0.6 10^3/ul (0.3-0.9); MONOCYTES % 6.7 % (0.0-11.0); NEUTROPHIL # 8.3 10^3/ul (1.6-7.5); NEUTROPHILS % 87.7 % (39.0-77.0); PLATELET COUNT 142 10^3/UL (140-440); RED CELL DISTRIBUTION WIDTH 14.9 % (11.5-14.5); UNCORRECTED WBC 9.5 10^3/ul (4.8-10.8); WHITE BLOOD COUNT 9.5 10^3/ul (4.8-10.8)
[2016-10-12 08:59] LABS: CONDITION 1; LH ANALYZER COMMENTS 1
[2016-10-12] MEDS: ASPIRIN (EC) 81 MG TAB PO SCH (09:11)
[2016-10-12] MEDS: POLYETHYLENE GLYCOL 17 GM PACKET PO SCH ×2 (09:11→20:54)
[2016-10-12] MEDS: FINASTERIDE 5 MG TAB PO SCH (09:11)
[2016-10-12] MEDS: SENNA/DOCUSATE NA (8.6MG/50MG) TAB PO SCH ×2 (09:15→20:54)
[2016-10-12] MEDS ORDERED: POTASSIUM CHLORIDE (SR) 20 MEQ TAB PO STA ×2 (09:46→09:55)
[2016-10-12] MEDS ORDERED: POTASSIUM CHLORIDE 20 MEQ POWDER FOR ORAL SOLN PO ONE (10:00)
[2016-10-12] MEDS ORDERED: MAGNESIUM SULFATE 1 GM/D5W 100 ML IVPB ONE (10:00)
[2016-10-12] MEDS ORDERED: MAGNESIUM SULFATE 2 GM/50 ML 50 ML IVPB ONE (10:00)
--- NOTE | 2016-10-12 10:28 | CONS ---
DATE OF ADMISSION: 10/07/2016 DATE OF CONSULTATION: CHIEF COMPLAINT: Continues to have significant constipation, although he has been having small bowel movements. OBJECTIVE FINDINGS: He is alert, he is thin built, he is afebrile. He does have history of atrial fibrillation in the past 24 to 48 hours. ABDOMEN: Showed unremarkable findings. LABORATORY WORKUP: Hemoglobin is 13.5, WBC is 9500. His troponin has gone up to 3.1 yesterday, tod ay is 2.2. His troponin was 0.38 on the . The KUB showed significant stools in the colon. CLINICAL IMPRESSION: Fecal impaction continues to exist. He has been having small bowel movements on lactulose. PLAN: Recommend will add Linzess from the current regimen. Dictated By: DEVAN WORTHINGTON/CANDE Conf#: [id number] DID#: [id number]
[2016-10-12] MEDS: CLOPIDOGREL 75 MG TAB PO SCH (10:42)
[2016-10-12] MEDS: METOPROLOL 25 MG TAB PO SCH ×2 (10:42→20:54)
--- NOTE | 2016-10-12 11:35 | PN ---
Date/Time of Note Date/Time of Note DATE: 10/12/16 TIME: 10:51 Assessment/Plan VTE Prophylaxis VTE Prophylaxis Intervention: LMWH Lines/Catheters IV Catheter Type (from [facility]): Peripheral IV Urinary Cath still in place: Yes Reason Cath still needed: other (indicate) (monitor UOP ) Assessment/Plan Assessment/Plan 81 yo male: 1. Constipation with possible obstipation Repeat CT abdo/pelvis with IV/po contrast showing extensive distension of the colon with large amount of stool and gas throughout. This may indicate distal obstruction. No obstructing lesion is visualized. AXR x 2 still showing colon full with feces. Continue bowel regimen, on multiple po agents, Tap water enema, manual disimpaction prn Clear liquid diet as tolerated. Discussed with Dr Chicas this AM, Colonoscopy on hold and likely not on this admission due to cardiac status. 2. Coronary artery disease and s/p previous coronary artery bypass grafting. Episode of A fib overnight, CE c/w with NSTEMI Continue ASA, Coreg and conservative management . Continue current meds. 2D echo stable. Cardiology following 3. Parkinson Disease: continue Sinemet. 4. Lower ext weakness: progressive lately per patient, given also distended bladder and constipation, Doppler negative Will plan MRI T/L spine today. 5. Distended bladder, ? urinary retention due to severe constipation, Bishop catheter was placed and renal function stable. D/c Bishop in the next 24 hrs Prophylaxis: Lovenox for DVT ppx and GI prophylaxis with PPI Disposition: Bowel regimen, follow up further cardiology and GI recs. F/u MRI T/ L spine results Subjective 24 Hr Interval Summary Free Text/Dictation Patient doing OK and remains stable Complaints addressed today and already discussed plan of care with Cardiology and GI this AM, I have explained to him that once we do have a consensus and he is stable, he will be discharged home MRI L spine to evaluate Low back pain even if he is really not a candidate for much intervention right away due to NSTEMI Exam/Review of Systems Vital Signs Vitals Vital Signs Date Time Temp Pulse Resp B/P Pulse Ox O2 Delivery O2 Flow Rate FiO2 10/12/16 09:53 71 10/12/16 08:03 99.3 19 131/60 94 10/12/16 04:00 Room Air Intake and Output 10/11/16 10/11/16 10/12/16 15:00 23:00 07:00 Intake Total 750 ml 1620 ml Output Total 350 ml 650 ml Balance 400 ml 970 ml Exam Constitutional: alert, frail, oriented, other (elderly ) Respiratory: clear to auscultation, normal air movement Cardiovascular: nl pulses, regular rate and rhythm Gastrointestinal: distended (but better ), non-tender, soft Musculoskeletal: nl extremities to inspection, other (no edema, clubbing or cyanosis ) Extremities: normal pulses Neurological: [employer] II-XII intact, nl mental status, nl speech, other ( genralised weakness ) Results Result Diagram: 10/12/1642 10/12/1642 Results 24 hrs Laboratory Tests Test 10/11/16 14:10 10/12/16 05:42 Creatine Kinase 81 Creatine Kinase Index 3.4 Creatinine Kinase MB (Mass) 2.74 H Troponin I 2.260 *H Anion Gap 10 Basophils # 0.0 Basophils % 0.2 Blood Morphology Comment Blood Urea Nitrogen 13 Calcium Level 8.2 L Carbon Dioxide Level 32 H Chloride Level 100 Creatinine 0.58 L Eosinophils # 0.1 Eosinophils % 1.0 Glucose Level 106 Hematocrit 40.6 L Hemoglobin 13.5 L Lymphocytes # 0.4 L Lymphocytes % 4.4 L Magnesium Level 1.9 Mean Corpuscular Hemoglobin 30.8 Mean Corpuscular Hemoglobin Concent 33.3 Mean Corpuscular Volume 92.4 Mean Platelet Volume 8.0 Monocytes # 0.6 Monocytes % 6.7 Neutrophils # 8.3 H Neutrophils % 87.7 H Nucleated Red Blood Cells # 0.0 Nucleated Red Blood Cells % 0.0 Phosphorus Level 3.0 Platelet Count 142 Potassium Level 3.8 Red Blood Count 4.40 L Red Cell Distribution Width 14.9 H Sodium Level 138 White Blood Count 9.5 # Medications Medications Current Medications Aspirin (Halfprin) 81 mg DAILY PO Last administered on 10/12/16 09:11; Admin Dose 81 MG; Start 10/08/16 at 09:00 Finasteride (Proscar) 5 mg DAILY PO Last administered on 10/12/16 09:11; Admin Dose 5 MG; Start 10/08/16 at 09:00 Neomycin/ Polymyxin/ Dexamethasone (Maxitrol Oph Susp) 1 drop Q4H BOTH EYES Last administered on 10/12/16 10:40; Admin Dose 1 DROP; Start 10/08/16 at 01:30 Tamsulosin HCl (Flomax) 0.4 mg QPM PO Last administered on 10/11/16 20:35; Admin Dose 0.4 MG; Start 10/08/16 at 21:00 Polyethylene Glycol (Miralax) 17 gm BID PO Last administered on 10/12/16 09:11 ; Admin Dose 17 GM; Start 10/08/16 at 01:30 Senna/Docusate Sodium (Senokot-S) 2 tab BID PO Last administered on 10/12/16 09:15; Admin Dose 2 TAB; Start 10/08/16 at 01:30 Acetaminophen (Tylenol Tab) 650 mg Q4H PRN PO PAIN AND OR ELEVATED TEMP Last administered on 10/11/16 11:48; Admin Dose 650 MG; Start 10/08/16 at 01:30 Ondansetron HCl (Zofran Inj) 4 mg Q4H PRN IV NAUSEA AND/OR VOMITING; Start at 01:30 Morphine Sulfate 2 mg 2 mg Q2H PRN IV PAIN Last administered on 10/12/16 01:39 ; Admin Dose 2 MG; Start 10/08/16 at 01:30 Dextrose/Sodium Chloride (D5-NS) 1,000 ml @ 75 mls/hr [id number] IV Last administered on 10/12/16 04:16; Admin Dose 75 MLS/HR; Start 10/09/16 at 07:00 Lactulose (Enulose) 20 gm Q6H PRN PO CONSTIPATION Last administered on 17:55; Admin Dose 20 GM; Start 10/09/16 at 12:00 Atorvastatin Calcium 40 mg 40 mg HS PO Last administered on 10/11/16 20:35; Admin Dose 40 MG; Start 10/10/16 at 21:00 Magnesium Sulfate/ Dextrose 100 ml @ 100 mls/hr ONCE ONCE IVPB ; Start at 10:00; Stop 10/12/16 at 10:59 Magnesium Sulfate (Magnesium Sulfate 2 Gm/50 ml) 50 ml @ 25 mls/hr ONCE ONCE IVPB Last administered on 10/12/16 10:41; Admin Dose 25 MLS/HR; Start at 10:00; Stop 10/12/16 at 11:59 Clopidogrel Bisulfate (plaVIX) 75 mg DAILY PO Last administered on 10/12/16 10 :42; Admin Dose 75 MG; Start 10/12/16 at 10:00 Metoprolol Tartrate (Lopressor) 25 mg BID PO Last administered on 10/12/16 10: 42; Admin Dose 25 MG; Start 10/12/16 at 10:00 Carbidopa/Levodopa (Sinemet (25/ 100)) 1.5 tab Q6H PO ; Start 10/12/16 at 13:30 ZULMA FRIEDMAN Oct 12, 2016 11:01
[2016-10-12] MEDS ORDERED: PEG/ELECTROLYTES 4L BTL PO ONE (12:00)
[2016-10-12] MEDS: CARBIDOPA/LEVODOPA (25/100) TAB PO SCH ×2 (13:30→18:56)
--- NOTE | 2016-10-12 13:35 | CONS ---
Date/Time of Note Date/Time of Note DATE: 10/12/16 TIME: 13:31 Assessment/Plan Assessment/Plan Additional Assessment/Plan Myocardial infarction, non-ST elevation Severe constipation with possible obstruction Preserved ejection fraction CAD with history of CABG Hypertension -Patient with elevated troponins over the weekend. Patient was seen by Dr. Gonzales and discussed with the patient cardiac catheterization which he refused yesterday. This morning, I did have an extensive discussion with our patient discussing his troponins as well as the arrhythmias. Discussed the benefits and the risks. He adamantly continues to refuse cardiac catheterization. He continuously requested medical management and to be discharged today. Troponins are trending down but patient with episodes of nonsustained ventricular tachycardia. Potassium and magnesium supplementation has been ordered. I would change his beta joseph to Lopressor, add Plavix. I did also attempt to contact the patient's son phone number [phone] twice and I did leave a message this morning. Would continue telemetry monitoring at the current time. Consultation Date/Type/Reason Admit Date/Time Oct 07, 2016 at 22:48 Type of Consultation: cv 24 HR Interval Summary Free Text/Dictation Patient denies any chest pain, shortness of breath, palpitations or dizziness. Abdominal pain is better. Exam/Review of Systems Vital Signs Vitals Vital Signs Date Time Temp Pulse Resp B/P Pulse Ox O2 Delivery O2 Flow Rate FiO2 10/12/16 12:32 69 10/12/16 11:37 98.6 18 101/58 96 10/12/16 04:00 Room Air Intake and Output 10/11/16 10/11/16 10/12/16 14:59 22:59 06:59 Intake Total 750 ml 1620 ml Output Total 350 ml 650 ml Balance 400 ml 970 ml Exam No apparent distress Constitutional: alert, frail, oriented Head: normocephalic Neck: supple Respiratory: other (course breath sounds bilaterally, no wheezing) Cardiovascular: other (S1-S2 heard), regular rate and rhythm Gastrointestinal: bowel sounds, non-tender, soft Extremities: other (no edema) Results Result Diagram: 10/12/16 0542 10/12/16 0542 Results 24 hrs Laboratory Tests Test 10/11/16 14:10 10/12/16 05:42 Creatine Kinase 81 Creatine Kinase Index 3.4 Creatinine Kinase MB (Mass) 2.74 H Troponin I 2.260 *H Anion Gap 10 Basophils # 0.0 Basophils % 0.2 Blood Morphology Comment Blood Urea Nitrogen 13 Calcium Level 8.2 L Carbon Dioxide Level 32 H Chloride Level 100 Creatinine 0.58 L Eosinophils # 0.1 Eosinophils % 1.0 Glucose Level 106 Hematocrit 40.6 L Hemoglobin 13.5 L Lymphocytes # 0.4 L Lymphocytes % 4.4 L Magnesium Level 1.9 Mean Corpuscular Hemoglobin 30.8 Mean Corpuscular Hemoglobin Concent 33.3 Mean Corpuscular Volume 92.4 Mean Platelet Volume 8.0 Monocytes # 0.6 Monocytes % 6.7 Neutrophils # 8.3 H Neutrophils % 87.7 H Nucleated Red Blood Cells # 0.0 Nucleated Red Blood Cells % 0.0 Phosphorus Level 3.0 Platelet Count 142 Potassium Level 3.8 Red Blood Count 4.40 L Red Cell Distribution Width 14.9 H Sodium Level 138 White Blood Count 9.5 # Medications Medications Current Medications Aspirin (Halfprin) 81 mg DAILY PO Last administered on 10/12/16 09:11; Admin Dose 81 MG; Start 10/08/16 at 09:00 Finasteride (Proscar) 5 mg DAILY PO Last administered on 10/12/16 09:11; Admin Dose 5 MG; Start 10/08/16 at 09:00 Neomycin/ Polymyxin/ Dexamethasone (Maxitrol Oph Susp) 1 drop Q4H BOTH EYES Last administered on 10/12/16 10:40; Admin Dose 1 DROP; Start 10/08/16 at 01:30 Tamsulosin HCl (Flomax) 0.4 mg QPM PO Last administered on 10/11/16 20:35; Admin Dose 0.4 MG; Start 10/08/16 at 21:00 Polyethylene Glycol (Miralax) 17 gm BID PO Last administered on 10/12/16 09:11 ; Admin Dose 17 GM; Start 10/08/16 at 01:30 Senna/Docusate Sodium (Senokot-S) 2 tab BID PO Last administered on 10/12/16 09:15; Admin Dose 2 TAB; Start 10/08/16 at 01:30 Acetaminophen (Tylenol Tab) 650 mg Q4H PRN PO PAIN AND OR ELEVATED TEMP Last administered on 10/11/16 11:48; Admin Dose 650 MG; Start 10/08/16 at 01:30 Ondansetron HCl (Zofran Inj) 4 mg Q4H PRN IV NAUSEA AND/OR VOMITING; Start at 01:30 Morphine Sulfate 2 mg 2 mg Q2H PRN IV PAIN Last administered on 10/12/16 10:54 ; Admin Dose 2 MG; Start 10/08/16 at 01:30 Dextrose/Sodium Chloride (D5-NS) 1,000 ml @ 75 mls/hr [id number] IV Last administered on 10/12/16 04:16; Admin Dose 75 MLS/HR; Start 10/09/16 at 07:00 Lactulose (Enulose) 20 gm Q6H PRN PO CONSTIPATION Last administered on 17:55; Admin Dose 20 GM; Start 10/09/16 at 12:00 Atorvastatin Calcium (Lipitor) 40 mg HS PO Last administered on 10/11/16 20:35 ; Admin Dose 40 MG; Start 10/10/16 at 21:00 Clopidogrel Bisulfate (plaVIX) 75 mg DAILY PO Last administered on 10/12/16 10 :42; Admin Dose 75 MG; Start 10/12/16 at 10:00 Metoprolol Tartrate (Lopressor) 25 mg BID PO Last administered on 10/12/16 10: 42; Admin Dose 25 MG; Start 10/12/16 at 10:00 Carbidopa/Levodopa (Sinemet (25/ 100)) 1.5 tab Q6H PO ; Start 10/12/16 at 13:30 Billy Becerra DO Oct 12, 2016 13:35
[2016-10-12] MEDS: ATORVASTATIN 40 MG TAB PO SCH (20:54)
[2016-10-12] MEDS: TAMSULOSIN (SR) 0.4 MG CAP PO SCH (20:54)
--- NOTE | 2016-10-12 22:42 | RADRPT ---
Vent Rate: 70 bpm RR Interval: 0 msec MA Interval: 206 msec QRS Duration: 142 msec QT Interval: 454 msec QTC Interval: 490 msec P-R-T [place]: 33 - -83 - 8 degrees Normal sinus rhythm Left axis deviation Right bundle branch block Abnormal ECG Electronically Signed By: Billy Becerra [id number]
--- NOTE | 2016-10-12 23:26 | RADRPT ---
PROCEDURE: MRI lumbar spine CLINICAL INDICATION: Back pain with urinary retention TECHNIQUE: An MRI of the lumbar spine was performed on a high resolution high definition, MRI scan ner utilizing the following sequences: Sagittal T1 weighted, sagittal and dual echo axial T2 weighte d, and sagittal T2 weighted with fat saturation and sagittal STIR sequences. COMPARISON: None available FINDINGS: Low [id number] resolution is observed secondary to patient's metal hardware and motion. Limite d evaluation of the lumbar spine is observed. The lumbar lordosis demonstrates a grade 1 spondylolisthesis of L4 and L5 without definite evidence for spondylolysis. Preservation of remainder of the vertebral body heights are noted. Disk space h eight loss is present diffusely. The remainder of the examination is uninterpretable and consider ad ditional imaging and follow-up as clinically indicated. IMPRESSION: 1. Incomplete and severely limited MRI of the lumbar spine secondary to poor signal to noise from m otion and hardware artifact. 2. Grade 1 spondylolisthesis of L4 and L5 without evidence for spondylolysis. 3. Recommend additional imaging follow-up as clinically indicated. RPTAT: HDC .La Nena Gupta MD, Date Time Electronically viewed and signed by .La Nena Gupta MD, on 10/12/2016 23:26 .C/
--- NOTE | 2016-10-12 23:32 | RADRPT ---
PROCEDURE: MRI thoracic spine without contrast CLINICAL INDICATION: Back pain and urinary retention TECHNIQUE: An MRI of the thoracic spine was performed on a hi-definition high-resolution MR scanne r utilizing the following sequences: Sagittal and axial T1 weighted, sagittal and axial T2 weighted, and sagittal STIR. COMPARISON: None available FINDINGS: Poor signal to noise resolution is noted secondary to patient motion. There is a normal kyphosis of the thoracic spine. No evidence for acute fractures or traumatic sublu xations are present. Preservation of vertebral body heights and intervertebral disk spaces are note d. The imaged portions of the cervical and thoracic cord are normal with normal termination at L1. The bilateral posterior elements are intact and well aligned. The axial levels imaged throughout the thoracic spine demonstrate no evidence for central canal, sub articular recess or neural foraminal stenosis. Large, right greater than left , bilateral pleural effusions are present. At the L1-2 level, a 3 mm central disk extrusion is present. This contributes to mild ventral impre ssion on the thecal sac without significant central, subarticular recess or neural foraminal stenosi s. IMPRESSION: 1. Normal thoracic cord and conus termination at L1. 2. L1-2 3 mm central disk extrusion with mild ventral canal effacement and no significant stenosis. 3. Large right greater than left bilateral pleural effusions. RPTAT: HDC .La Nena Gupta MD, Date Time Electronically viewed and signed by .La Nena Gupta MD, on 10/12/2016 23:31 .C/
[2016-10-13] VITALS (13 sets, daily range): BP systolic 124–171; BP diastolic 59–74; PULSE 57–74; RESP 18–19
[2016-10-13] MEDS: ACETAMINOPHEN 325 MG TAB PO PRN ×2 (00:31→11:15)
[2016-10-13] MEDS: NEOMYC/POLYMYX/DEXAMETH OPH 5 ML BOTH EYES SCH ×6 (00:31→21:56)
[2016-10-13] MEDS: CARBIDOPA/LEVODOPA (25/100) TAB PO SCH ×4 (01:46→21:05)
[2016-10-13] MEDS: morphine 2 MG INJ IV PRN ×4 (02:13→23:11)
[2016-10-13 07:42] LABS: POTASSIUM 4.1 mmol/L (3.5-5.1)
[2016-10-13 07:44] LABS: BASOPHILS % 0.2 % (0.0-2.0); CREATININE 0.59 mg/dl (0.61-1.24); EOSINOPHILS # 0.1 10^3/ul (0.0-0.5); EOSINOPHILS % 2.4 % (0.0-7.0); HEMATOCRIT 33.5 % (42.0-52.0); HEMOGLOBIN 11.3 g/dl (14.0-18.0); LYMPHOCYTES # 0.6 10^3/ul (0.8-2.9); LYMPHOCYTES % 12.6 % (15.0-51.0); MEAN CORPUSCULAR HGB CONC 33.7 g/dl (32.0-37.0); MEAN CORPUSCULAR VOLUME 91.9 fl (82.0-101.0); MEAN PLATELET VOLUME 7.2 fl (7.4-10.4); MONOCYTE # 0.5 10^3/ul (0.3-0.9); MONOCYTES % 10.3 % (0.0-11.0); NEUTROPHIL # 3.7 10^3/ul (1.6-7.5); NEUTROPHILS % 74.5 % (39.0-77.0); PLATELET COUNT 144 10^3/UL (140-440); RED BLOOD COUNT 3.65 10^6/ul (4.70-6.10); RED CELL DISTRIBUTION WIDTH 14.4 % (11.5-14.5); UNCORRECTED WBC 4.9 10^3/ul (4.8-10.8); WHITE BLOOD COUNT 4.9 10^3/ul (4.8-10.8)
[2016-10-13 07:45] LABS: CALCIUM 7.7 mg/dl (8.4-10.2)
[2016-10-13 07:51] LABS: MAGNESIUM 2.1 mg/dl (1.7-2.5); PHOSPHORUS 2.9 mg/dl (2.5-4.9)
[2016-10-13 08:00] LABS: CONDITION 1
--- NOTE | 2016-10-13 08:11 | PN ---
DATE: 10/11/2016 CARDIOLOGY FOLLOWUP SUBJECTIVE: Discussed with the staff. The patient's rhythm strip was reviewed. Remains in sinus r hythm. No chest pain or pressure. Does have shortness of breath. MEDICATIONS: Reviewed. PHYSICAL EXAMINATION: VITAL SIGNS: Temperature 98, heart rate of 77, blood pressure 124/71, respiration rate 18. HEENT: Normocephalic, atraumatic. Elderly gentleman. Pupils are equal. CARDIOVASCULAR: Regular rate and rhythm. PULMONARY: With no wheezes. GASTROINTESTINAL: Soft, nontender. EXTREMITIES: With trivial edema. NEUROLOGIC: Awake, responds appropriately. LABORATORY: Sodium 138, potassium 4.3, BUN of 9, creatinine 0.5, glucose of 90. Troponin peak at 3 .9. ASSESSMENT AND PLAN: 1. Non-ST elevation myocardial infarction. 2. Constipation. 3. History of coronary artery disease, status post coronary bypass graft twice per his report. 4. Hypertension. 5. Parkinson's. 6. Dyslipidemia. RECOMMENDATIONS: Aspirin and statin and Coreg was added. We will continue with those medications f or now. The patient told me that he did not want to have an angiography done. We will continue to monitor him for now and will follow up tomorrow. Dictated By: YAW RUTHERFORD MD AV/CANDE Conf#: [id number] DID#: [id number] CC: ZULMA FRIEDMAN MD;*End*
[2016-10-13] MEDS: ASPIRIN (EC) 81 MG TAB PO SCH (09:00)
[2016-10-13] MEDS: CLOPIDOGREL 75 MG TAB PO SCH (09:01)
[2016-10-13] MEDS: POLYETHYLENE GLYCOL 17 GM PACKET PO SCH ×2 (09:01→21:06)
[2016-10-13] MEDS: METOPROLOL 25 MG TAB PO SCH ×2 (09:01→21:06)
[2016-10-13] MEDS: FINASTERIDE 5 MG TAB PO SCH (09:01)
[2016-10-13] MEDS: SENNA/DOCUSATE NA (8.6MG/50MG) TAB PO SCH ×2 (09:02→21:05)
[2016-10-13 10:15] LABS: CK-MB 1.33 ng/ml (0.0-2.4); TROPONIN-I 1.49 ng/ml (0.00-0.12)
--- NOTE | 2016-10-13 11:46 | RADRPT ---
PROCEDURE: XR Chest. CLINICAL INDICATION: Chest pain, pleural effusion TECHNIQUE: Single frontal view of the chest. COMPARISON: 10/07/2016 chest radiograph. FINDINGS: Postoperative changes from open thoracic surgery with sternotomy wires. Small new right pleural effusion with associated consolidation. Mild increased bilateral central in terstitial edema. No pneumothorax. Cardiac silhouette is partially obscured. Mild degenerative changes of both shoulders are present. Vascular calcifications of the aorta are present compatible with atherosclerosis. Air distension of the colon appears mildly improved. IMPRESSION: Small new right pleural effusion with associated consolidation. Mildly increased bilateral central interstitial edema may represent early cardiopulmonary congestion. RPTAT: AADD .Obed Costa MD, MD Date Time Electronically viewed and signed by .Obed Costa MD, on 10/13/2016 11:46 .B/
--- NOTE | 2016-10-13 12:54 | RADRPT ---
PROCEDURE: XR Abdomen. CLINICAL INDICATION: Abdominal pain. Constipation. Follow-up. TECHNIQUE: 2 views of the abdomen are available for review. COMPARISON: Abdomen x-ray series dated 10/11/2016 FINDINGS: Air-filled distended loops of small and large bowel are seen more suggestive of an ileus. There is still seen throughout the colon consistent with constipation. This is minimally improved when use red to the prior study. There are no abnormal calcifications overlying the urinary tracts. 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 Scattered surgical clips are seen overlying the left mid abdomen a nd left lower quadrant region, stable over time. IMPRESSION: 1. Benign ileus pattern scattered throughout the abdomen. 2. Significant diffuse colonic constipation, improved in the interim. RPTAT: HMJB .Alec Duong MD, Date Time Electronically viewed and signed by .Alec Duong MD, on 10/13/2016 12:54 .B/
[2016-10-13] MEDS: DEXTROSE 5%-0.9% NACL 1,000 ML IV SCH (14:12)
--- NOTE | 2016-10-13 14:34 | PN ---
Date/Time of Note Date/Time of Note DATE: 10/13/16 TIME: 14:23 Assessment/Plan VTE Prophylaxis VTE Prophylaxis Intervention: SCD's Lines/Catheters IV Catheter Type (from Nrs): Peripheral IV Urinary Cath still in place: No Assessment/Plan Assessment/Plan 81 yo male: 1. Constipation with possible obstipation Repeat CT abdo/pelvis with IV/po contrast showing extensive distension of the colon with large amount of stool and gas throughout. This may indicate distal obstruction. No obstructing lesion is visualized. 3rd AXR with colon full with feces, Continue bowel regimen, and Linzess added. Advance diet as tolerated. Given insistence of patient and his family, patient to go home today with PCP follow up. 2. Coronary artery disease and s/p previous coronary artery bypass grafting. Episode of A fib overnight, CE c/w with NSTEMI Continue ASA, Coreg and conservative management, despite multiple discussion with patient, he refuses any intervention. Continue current meds. 2D echo stable. Appreciate Dr Gonzales's recommendations. Will proceed with home discharge with outpatient follow up with cardiology. 3. Parkinson Disease: continue Sinemet. 4. Lower ext weakness: progressive lately per patient, given also distended bladder and constipation, Doppler negative. MRI T/L spine with no acute findings. PT and pain control as outpatient, patient has reported that his pain was controlled with Tylenol 5. Distended bladder, ? urinary retention due to severe constipation, also hx of BPH, on Proscar and Flomax already D/c Bishop catheter and d/c home today. Prophylaxis:Lovenox for DVT ppx and GI prophylaxis with PPI Disposition: Bowel regimen, d/c home with Home health RN check and PT as needed. F/u with Cardiology and PCP as outpatient. Subjective 24 Hr Interval Summary Free Text/Dictation Patient with softer abdomen and AXR a little better but still with significant amount of stool, patient still insistent to go home where he would be more comfortable and surrounded by family. CXR stable Bishop catheter in place to be discontinued Patient multiple complaints but mostly related to discomfort of being in the hospital, he is refusing angiogram or any aggressive treatment. After discussion with patient and his son at bedside, they are very insistent on being discharged, Bishop will be removed now and he can go home after voiding. Exam/Review of Systems Vital Signs Vitals Vital Signs Date Time Temp Pulse Resp B/P Pulse Ox O2 Delivery O2 Flow Rate FiO2 10/13/16 12:44 57 10/13/16 11:32 98.3 18 171/74 98 10/12/16 04:00 Room Air Intake and Output 10/12/16 10/12/16 10/13/16 15:00 23:00 07:00 Intake Total 600 ml 240 ml Output Total 1000 ml Balance 600 ml -760 ml Exam Constitutional: alert, frail, oriented Respiratory: clear to auscultation, normal air movement Cardiovascular: bruits, regular rate and rhythm Gastrointestinal: non-tender, other (much less distended ), soft Musculoskeletal: nl extremities to inspection Extremities: normal pulses, other (no edema, clubbing or cyanosis ) Neurological: RELIEF MAN II-XII intact, nl mental status, nl speech, other ( generalised weakness ) Results Result Diagram: 10/13/16 0620 10/13/16 0620 Results 24 hrs Laboratory Tests Test 10/13/16 06:20 Anion Gap 9 Basophils # 0.0 Basophils % 0.2 Blood Morphology Comment Blood Urea Nitrogen 12 Calcium Level 7.7 L Carbon Dioxide Level 28 Chloride Level 104 Creatine Kinase 36 Creatine Kinase Index 3.7 Creatinine 0.59 L Creatinine Kinase MB (Mass) 1.33 Eosinophils # 0.1 Eosinophils % 2.4 Glucose Level 85 Hematocrit 33.5 L Hemoglobin 11.3 L Lymphocytes # 0.6 L Lymphocytes % 12.6 L Magnesium Level 2.1 Mean Corpuscular Hemoglobin 31.0 Mean Corpuscular Hemoglobin Concent 33.7 Mean Corpuscular Volume 91.9 Mean Platelet Volume 7.2 L Monocytes # 0.5 Monocytes % 10.3 Neutrophils # 3.7 Neutrophils % 74.5 Nucleated Red Blood Cells # 0.0 Nucleated Red Blood Cells % 0.0 Phosphorus Level 2.9 Platelet Count 144 Potassium Level 4.1 Red Blood Count 3.65 L Red Cell Distribution Width 14.4 Sodium Level 137 Troponin I 1.490 *H White Blood Count 4.9 # Medications Medications Current Medications Aspirin (Halfprin) 81 mg DAILY PO Last administered on 10/13/16 09:00; Admin Dose 81 MG; Start 10/08/16 at 09:00 Finasteride (Proscar) 5 mg DAILY PO Last administered on 10/13/16 09:01; Admin Dose 5 MG; Start 10/08/16 at 09:00 Neomycin/ Polymyxin/ Dexamethasone (Maxitrol Oph Susp) 1 drop Q4H BOTH EYES Last administered on 10/13/16 09:02; Admin Dose 1 DROP; Start 10/08/16 at 01:30 Tamsulosin HCl (Flomax) 0.4 mg QPM PO Last administered on 10/12/16 20:54; Admin Dose 0.4 MG; Start 10/08/16 at 21:00 Polyethylene Glycol (Miralax) 17 gm BID PO Last administered on 10/13/16 09:01 ; Admin Dose 17 GM; Start 10/08/16 at 01:30 Senna/Docusate Sodium (Senokot-S) 2 tab BID PO Last administered on 10/13/16 09:02; Admin Dose 2 TAB; Start 10/08/16 at 01:30 Acetaminophen (Tylenol Tab) 650 mg Q4H PRN PO PAIN AND OR ELEVATED TEMP Last administered on 10/13/16 11:15; Admin Dose 650 MG; Start 10/08/16 at 01:30 Ondansetron HCl (Zofran Inj) 4 mg Q4H PRN IV NAUSEA AND/OR VOMITING; Start at 01:30 Morphine Sulfate 2 mg 2 mg Q2H PRN IV PAIN Last administered on 10/13/16 12:44 ; Admin Dose 2 MG; Start 10/08/16 at 01:30 Dextrose/Sodium Chloride (D5-NS) 1,000 ml @ 50 mls/hr Q20H IV Last administered on 10/13/16 14:12; Admin Dose 50 MLS/HR; Start 10/09/16 at 07:00 Lactulose (Enulose) 20 gm Q6H PRN PO CONSTIPATION Last administered on 17:55; Admin Dose 20 GM; Start 10/09/16 at 12:00 Atorvastatin Calcium (Lipitor) 40 mg HS PO Last administered on 10/12/16 20:54 ; Admin Dose 40 MG; Start 10/10/16 at 21:00 Clopidogrel Bisulfate (plaVIX) 75 mg DAILY PO Last administered on 10/13/16 09 :01; Admin Dose 75 MG; Start 10/12/16 at 10:00 Metoprolol Tartrate (Lopressor) 25 mg BID PO Last administered on 10/13/16 09: 01; Admin Dose 25 MG; Start 10/12/16 at 10:00 Carbidopa/Levodopa (Sinemet (25/ 100)) 1.5 tab Q6H PO Last administered on 10/13 14:13; Admin Dose 1.5 TAB; Start 10/12/16 at 13:30 Procedures Procedures PROCEDURE: XR Chest. CLINICAL INDICATION: Chest pain, pleural effusion TECHNIQUE: Single frontal view of the chest. COMPARISON: 10/07/2016 chest radiograph. FINDINGS: Postoperative changes from open thoracic surgery with sternotomy wires. Small new right pleural effusion with associated consolidation. Mild increased bilateral central interstitial edema. No pneumothorax. Cardiac silhouette is partially obscured. Mild degenerative changes of both shoulders are present. Vascular calcifications of the aorta are present compatible with atherosclerosis. Air distension of the colon appears mildly improved. IMPRESSION: Small new right pleural effusion with associated consolidation. Mildly increased bilateral central interstitial edema may represent early cardiopulmonary congestion. PROCEDURE: XR Abdomen. CLINICAL INDICATION: Abdominal pain. Constipation. Follow-up. TECHNIQUE: 2 views of the abdomen are available for review. COMPARISON: Abdomen x-ray series dated 10/11/2016 FINDINGS: Air-filled distended loops of small and large bowel are seen more suggestive of an ileus. There is still seen throughout the colon consistent with constipation. This is minimally improved when compared to the prior study. There are no abnormal calcifications overlying the urinary tracts. The osseous structures are remarkable for a right hip prosthesis, and severe degenerative spondylosis and levoscoliosis of the lumbar spine. Scattered surgical clips are seen overlying the left mid abdomen and left lower quadrant region, stable over time. IMPRESSION: 1. Benign ileus pattern scattered throughout the abdomen. 2. Significant diffuse colonic constipation, improved in the interim. RPTAT: HMJB .Alec Duong MD, MD Date Time Electronically viewed and signed by .Alec Duong MD, on 10/13/2016 12:54 ZULMA FRIEDMAN Oct 13, 2016 14:34
--- NOTE | 2016-10-13 16:00 | PDOCDIS ---
Discharge Instructions CONDITION Patient Condition: Stable HOME CARE INSTRUCTIONS: Special Diet: cardiac diet ACTIVITY: Activity Restrictions: Slowly Increase Activity FOLLOW UP/APPOINTMENTS Appointments Follow up with PCP within 2 weeks Follow up [facility] within 1 to 2 weeks ZULMA FRIEDMAN Oct 13, 2016 15:59
[2016-10-13] MEDS ORDERED: METO-448 PO (16:03)
[2016-10-13] MEDS ORDERED: POLY17PO6 PO (16:03)
[2016-10-13] MEDS ORDERED: ATOR40TA68 PO (16:03)
[2016-10-13] MEDS ORDERED: SENN-88 PO (16:03)
[2016-10-13] MEDS ORDERED: CLOP75TA28 PO (16:03)
[2016-10-13] MEDS ORDERED: LINA145C PO (16:04)
[2016-10-13] MEDS: TAMSULOSIN (SR) 0.4 MG CAP PO SCH (21:05)
[2016-10-13] MEDS: ATORVASTATIN 40 MG TAB PO SCH (21:06)
--- NOTE | 2016-10-13 22:19 | PN ---
Date/Time of Note Date/Time of Note DATE: 10/13/16 TIME: 22:18 Assessment/Plan VTE Prophylaxis VTE Prophylaxis Intervention: SCD's Lines/Catheters IV Catheter Type (from Nrs): Peripheral IV Urinary Cath still in place: No Assessment/Plan Assessment/Plan Myocardial infarction, non-ST elevation Severe constipation with possible obstruction Preserved ejection fraction CAD with history of CABG Hypertension -Declined cardiac cath -continue cardiac meds -no further cardiac work up Subjective 24 Hr Interval Summary Free Text/Dictation The patient with no chest pain and no sob Exam/Review of Systems Vital Signs Vitals Vital Signs Date Time Temp Pulse Resp B/P Pulse Ox O2 Delivery O2 Flow Rate FiO2 10/13/16 20:34 67 10/13/16 19:59 97.5 18 153/70 97 10/12/16 04:00 Room Air Intake and Output 10/12/16 10/12/16 10/13/16 15:00 23:00 07:00 Intake Total 600 ml 240 ml Output Total 1000 ml Balance 600 ml -760 ml Results Result Diagram: 10/13/16 0620 10/13/16 0620 Results 24 hrs Laboratory Tests Test 10/13/16 06:20 Anion Gap 9 Basophils # 0.0 Basophils % 0.2 Blood Morphology Comment Blood Urea Nitrogen 12 Calcium Level 7.7 L Carbon Dioxide Level 28 Chloride Level 104 Creatine Kinase 36 Creatine Kinase Index 3.7 Creatinine 0.59 L Creatinine Kinase MB (Mass) 1.33 Eosinophils # 0.1 Eosinophils % 2.4 Glucose Level 85 Hematocrit 33.5 L Hemoglobin 11.3 L Lymphocytes # 0.6 L Lymphocytes % 12.6 L Magnesium Level 2.1 Mean Corpuscular Hemoglobin 31.0 Mean Corpuscular Hemoglobin Concent 33.7 Mean Corpuscular Volume 91.9 Mean Platelet Volume 7.2 L Monocytes # 0.5 Monocytes % 10.3 Neutrophils # 3.7 Neutrophils % 74.5 Nucleated Red Blood Cells # 0.0 Nucleated Red Blood Cells % 0.0 Phosphorus Level 2.9 Platelet Count 144 Potassium Level 4.1 Red Blood Count 3.65 L Red Cell Distribution Width 14.4 Sodium Level 137 Troponin I 1.490 *H White Blood Count 4.9 # Medications Medications Current Medications Aspirin (Halfprin) 81 mg DAILY PO Last administered on 10/13/16t 09:00; Admin Dose 81 MG; Start 10/08/16 at 09:00 Finasteride (Proscar) 5 mg DAILY PO Last administered on 10/13/16 09:01; Admin Dose 5 MG; Start 10/08/16 at 09:00 Neomycin/ Polymyxin/ Dexamethasone (Maxitrol Oph Susp) 1 drop Q4H BOTH EYES Last administered on 10/13/16 21:56; Admin Dose 1 DROP; Start 10/08/16 at 01:30 Tamsulosin HCl (Flomax) 0.4 mg QPM PO Last administered on 10/13/16 21:05; Admin Dose 0.4 MG; Start 10/08/16 at 21:00 Polyethylene Glycol (Miralax) 17 gm BID PO Last administered on 10/13/16 21:06 ; Admin Dose 17 GM; Start 10/08/16 at 01:30 Senna/Docusate Sodium (Senokot-S) 2 tab BID PO Last administered on 10/13/16 21:05; Admin Dose 2 TAB; Start 10/08/16 at 01:30 Acetaminophen (Tylenol Tab) 650 mg Q4H PRN PO PAIN AND OR ELEVATED TEMP Last administered on 10/13/16 11:15; Admin Dose 650 MG; Start 10/08/16 at 01:30 Ondansetron HCl (Zofran Inj) 4 mg Q4H PRN IV NAUSEA AND/OR VOMITING; Start at 01:30 Morphine Sulfate (morphine) 2 mg Q2H PRN IV PAIN Last administered on 12:44; Admin Dose 2 MG; Start 10/08/16 at 01:30 Lactulose (Enulose) 20 gm Q6H PRN PO CONSTIPATION Last administered on 17:55; Admin Dose 20 GM; Start 10/09/16 at 12:00 Atorvastatin Calcium (Lipitor) 40 mg HS PO Last administered on 10/13/16 21:06 ; Admin Dose 40 MG; Start 10/10/16 at 21:00 Clopidogrel Bisulfate (plaVIX) 75 mg DAILY PO Last administered on 10/13/16 09 :01; Admin Dose 75 MG; Start 10/12/16 at 10:00 Metoprolol Tartrate (Lopressor) 25 mg BID PO Last administered on 10/13/16 21: 06; Admin Dose 25 MG; Start 10/12/16 at 10:00 Carbidopa/Levodopa (Sinemet (/ )) 1.5 tab Q6H PO Last administered on 10/13t 21:05; Admin Dose 1.5 TAB; Start 10/12/16 at 13:30 ALFREDO ROCA MD Oct 13, 2016 22:19
[2016-10-14 00:17] VITALS: PULSE 64
[2016-10-14] MEDS: CARBIDOPA/LEVODOPA (25/100) TAB PO SCH (02:05)
[2016-10-14] MEDS: NEOMYC/POLYMYX/DEXAMETH OPH 5 ML BOTH EYES SCH ×2 (02:06→05:30)
[2016-10-14] MEDS: morphine 2 MG INJ IV PRN (02:10)
[2016-10-14] MEDS ORDERED: FUROSEMIDE 20 MG INJ IV ONE (03:00)
[2016-10-14 04:15] VITALS: PULSE 60
[2016-10-14 05:03] VITALS: BP 129/63; RESP 18
[2016-10-14] MEDS: ACETAMINOPHEN 325 MG TAB PO PRN (05:46)
--- NOTE | 2016-10-14 12:21 | DS ---
DATE OF ADMISSION: 10/07/2016 DATE OF DISCHARGE: 10/14/2016 ADMITTING PHYSICIAN: Dr. He DISCHARGING PHYSICIAN: Silvio Rivera MD CONSULTANTS DURING THIS ADMISSION: Dr. Chicas from gastroenterology and Dr. Becerra from cardiology. BRIEF HISTORY OF PRESENT ILLNESS: This is an 81-year-old male with history of severe coronary arter y disease, Parkinson disease, benign prostatic hypertrophy who presented to the emergency department with abdominal distention, worsening over a period of 4 days. The patient was admitted to [facility] as part of his workup, his troponin was slightly elevated. HOSPITAL COURSE: The patient was admitted to [facility]. He was started on bowel regimen as he was found to have significant constipation as the etiology of his abdominal distention but also with sig nificant bladder distention requiring a Bishop catheter placement. His troponins were rechecked and they are actually elevated. Therefore, cardiology was consulted. The patient was fairly asymptomat ic with no chest pains and sinus rhythm on admission. After multiple discussions, he agreed to have a colonoscopy once his bowels were cleaned out. He was therefore started on specific bowel regimen including enemas and multiple oral medications. He started having bowel movements; however, serial abdominal x-ray did show that his colon was still full of feces, which is most consistent to probab ly significant constipation with impaction at admission. He has had at least manual disimpaction tw ice, multiple doses of enema and started having multiple bowel movements of significant size. Howeve r, the patient did go into a run of atrial fibrillation and also nonsustained V-tach which was worri some for ongoing ischemia. Therefore, his troponins were rechecked and they actually increased up t o 3.9. His troponins where trended down to 1.4. He is chest pain free. No further arrhythmias. H is cardiac medications were readjusted. Plavix was added to his antiplatelet therapy. The patient h as refused multiple times angiography. This is despite two cardiologists talking to him and myself. He also insisted on going home even if his x-ray was still showing significant amount of feces in t he colon, but slightly improved. After multiple discussions with the patient and the patient's fami ly and given his insistence to go home he has been discharged home. His Bishop catheter was removed; it took 12 hours for him to urinate a significant amount. He was also given a dose of Lasix x1. T he patient was discharged early this morning once he was able to urinate. He is to follow up with h is focuser as an outpatient and also primary care physician. After discussion with Dr. Chicas he will be placed also on Linzess to help with chronic constipation. DISPOSITION: Discharge home with home health RN and PT. DISCHARGE CONDITION: Stable. DISCHARGE DIET: May advance diet to cardiac diet. DISCHARGE ACTIVITY: Resume home activity. FOLLOWUP: 1. The patient will need to follow up with his focuser within 1 to 2 weeks. 2. Follow up with primary care physician within 1 week. DISCHARGE DIAGNOSES. 1. Constipation with possible obstipation, resolving. 2. Coronary artery disease, status post previous coronary artery bypass surgery x2. 3. Status post non-ST elevation myocardial infarction. 4. Parkinson's disease. 5. Lower extremity weakness, negative MRI. 6. Benign prostatic hypertrophy with episode of urinary retention, resolved. DISCHARGE MEDICATIONS: 1. Atorvastatin 40 mg p.o. daily. 2. Plavix 75 mg p.o. daily. 3. Linzess 145 mcg daily. 4. Lopressor 25 mg p.o. b.i.d. 5. MiraLax 17 grams p.o. b.i.d. 6. Senna 1 tab p.o. b.i.d. as needed for constipation. 7. Aspirin 81 mg p.o. daily. 8. Sinemet 25/100 1.5 tab p.o. q.i.d. 9. Finasteride 5 mg p.o. daily. 10. Lasix 20 mg p.o. daily. 11. Maxitrol 1 drop to both eyes q.4h. 12. Zocor 40 mg at bedtime. 13. Spironolactone 25 mg p.o. daily. 14. Flomax 0.4 mg p.o. daily. 15. Coenzyme Q 10 mg p.o. daily. Dictated By: SILVIO MENDIETA/CANDE Conf#: [id number] DID#: [id number]
== END 2016-10-14 08:37 | disposition home health service (06) | DRG 388 ==
LOC: E/R 19:41 → MS4 22:48
PROVIDERS: ADMIT Legal Medicine; ATTEND Legal Medicine
DX: K56.41 Fecal impaction (principal); I21.4 Non-ST elevation (NSTEMI) myocardial infarction; K56.60 Unspecified intestinal obstruction; J90 Pleural effusion, not elsewhere classified; R64 Cachexia; J98.11 Atelectasis; Z68.1 Body mass index [BMI] 19.9 or less, adult; I48.91 Unspecified atrial fibrillation; R14.0 Abdominal distension (gaseous); I10 Essential (primary) hypertension; G20 Parkinson's disease; N40.0 Benign prostatic hyperplasia without lower urinary tract symptoms; Z95.1 Presence of aortocoronary bypass graft; N32.89 Other specified disorders of bladder; Z66 Do not resuscitate
CPT/HCPCS: 36415; 71010; 72146; 72148; 74000; 74176; 74177; 80048; 80053; 80061; 81001; 81003; 82550; 82553; 82962; 83605; 83735; 84100; 84436; 84443; 84479; 84484; 85025; 85610; 85730; 87040; 87086; 93005; 93306; 93965; 96374; 96375; 97110; 97162; 97530; J1940; J1650; J2270; J3370; J3475; J7030; J7042; Q9967